=== PATIENT | male | born 1955 | race Two or more races ===

== ENCOUNTER 2017-01-13 17:10 | Inpatient (IN) | payer MEDICARE, OTHER ==
[2017-01-13 17:52] LABS: % BASOPHILS 0.4 % (0.0-2.0); % EOSINOPHILS 3.8 % (0.0-5.0); % LYMPHOCYTES 39.3 % (20.0-50.0); % MONOCYTES 11.9 % (2.0-10.0); % NEUTROPHILS 44.6 % (40.0-80.0); HEMATOCRIT 33.3 % (39.0-49.0); HEMOGLOBIN 11.4 gm/dL (13.2-17.3); MEAN CELL VOLUME 95.6 fl (80-99); MEAN CORPUSCULAR HEMOGLOBIN 32.6 pg (26.0-30.0); MEAN CORPUSCULAR HGB CONC 34.1 pg (28.0-36.0); MEAN PLATELET VOLUME 8.1 fl; NEUTROPHILE ABSOLUTE 2.5 Th/cmm (1.8-8.0); PLATELET COUNT 312 Th/cmm (150-400); RED BLOOD COUNT 3.48 Mil/cmm (4.30-5.70); RED CELL DISTRIBUTION WIDTH 13.2 % (11.5-20.0); WHITE BLOOD COUNT 5.4 Th/cmm (4.8-10.8)
[2017-01-13 18:11] LABS: ALKALINE PHOSPHATASE 50 U/L (34-104); BILIRUBIN,TOTAL 0.2 mg/dL (0.3-1.0); BUN - UREA NITROGEN 31 mg/dL (7-25); BUN/CREATININE RATIO 22.1; CHLORIDE 103 mEq/L (98-107); CREATININE - SERUM 1.4 mg/dL (0.7-1.3); GLUCOSE 104 mg/dL (70-105); SGOT 13 U/L (13-39); SGPT/ALT 11 U/L (7-52); SODIUM SERUM 137 mEq/L (136-145)
[2017-01-13 18:12] LABS: CHOLESTEROL 217 mg/dL (<200); TRIGLYCERIDES 102 mg/dL (<150)
--- NOTE | 2017-01-13 18:34 | ED Physician Chart ---
Chief Complaint/HPI - Patient Information Allergies:: Allergies Allergy/AdvReac Type Severity Reaction Status Date / Time No Known Allergies Allergy Verified 01/13/17 17:25 Vitals:: Vital Signs - 8 hr 01/13/17 17:29 Temp 98.5 F HR 69 RR 16 BP 135/73 O2 Sat % 95 Review of Systems - Review of Systems General/Constitutional: No fever, No chills, No weight loss, No weakness, No diaphoresis, No edema, No loss of appetite Skin: No skin lesions, No rash, No bruising Head: No headache, No light-headedness Eyes: No loss of vision, No pain, No diplopia ENT: No earache, No nasal drainage, No sore throat, No tinnitus Neck: No neck pain, No swelling, No thyromegaly, No stiffness, No mass noted Cardio Vascular: No chest pain, No palpitations, No PND, No orthopnea, No edema Pulmonary: No SOB, No cough, No sputum, No wheezing GI: No nausea, No vomiting, No diarrhea, No pain, No melena, No hematochezia, No constipation, No hematemesis G/U: No dysuria, No frequency, No hematuria Musculoskeletal: No bone or joint pain, No back pain, No muscle pain, Other ( LOWER EXTREMITY EDEMA) Endocrine: No polydipsia Psychiatric: Prior psych history, Depression, No anxiety, No suicidal ideation Hematopoietic: No bruising, No lymphadenopathy Allergic/Immuno: No urticaria, No angioedema Neurological: No syncope, No focal symptoms, No weakness, No paresthesia, No headache, Seizure, No dizziness, Confusion, No vertigo Past Medical History - Past Medical History Obtainable: Yes Past Medical History: HTN, Asthma/COPD, Seizures, Dementia Family History: None Social History: Smoker, Alcohol, No Alcohol, No Drug Use, Care Facility Surgical History: None Psychiatricy History: Schizophrenia, Bipolar Medication: Reviewed Family Medical History - Family Member Mother History Unknown: Yes Physical Exam - Physical Examination General/Constitutional: Awake, Well-developed, well-nourished, Alert, No distress, GCS 15, Non-toxic appearing, Ambulatory Head: Atraumatic Eyes: Lids, conjuctiva normal, PERRL, EOMI Skin: Nl inspection, No rash, No skin lesions, No ecchymosis, Well hydrated, No lymphadenopathy ENMT: External ears, nose nl, Nasal exam nl, Lips, teeth, gums nl Neck: Nontender, Full ROM w/o pain, No JVD, No nuchal rigidity, No bruit, No mass, No stridor Respiratory: Nl effort/Exclusion, Clear to Auscultation, No Wheeze/Rhonchi/Rales Cardio Vascular: RRR, No murmur, gallop, rubs, NL S1 S2 GI: No tenderness/rebounding/guarding, No organomegaly, No hernia, Normal BS's, Nondistended, No mass/bruits, No McBurney tenderness : No CVA tenderness Extremities: No tenderness or effusion, Full ROM, normal strength in all extremities, Normal digits & nails Other Extremities comments:: THIS PATIENT HAS BILATERAL EDEMA OF BOTH LOWER LEGS. Neuro/Psych: Alert/oriented, DTR's symmetric, Normal sensory exam, Normal motor strength, Judgement/insight normal, Normal gait, No focal deficits Other Neuro/Psych comments:: THE IS AGITATE AND LOUD BUT NOW OK AFTER HE WAS GIVEN HALDOL. Misc: normal gait, Normal back, No paraspinal tenderness Labs/Radiology/EKG Results - Lab Results Results: Laboratory Tests 01/13/17 01/13/17 01/13/17 17:33 17:33 17:33 WBC 5.4 RBC 3.48 L Hgb 11.4 L Hct 33.3 L MCV 95.6 MCH 32.6 H MCHC Differential 34.1 RDW 13.2 Plt Count 312 MPV 8.1 Neutrophils % 44.6 Lymphocytes % 39.3 Monocytes % 11.9 H Eosinophils % 3.8 Basophils % 0.4 PTT (Actin FS) 24.9 L Sodium Potassium Chloride Carbon Dioxide Anion Gap BUN Creatinine Est GFR ( Amer) Est GFR (Non-Af Amer) BUN/Creatinine Ratio Glucose Calcium Total Bilirubin AST ALT Alkaline Phosphatase Troponin I Total Protein Albumin Globulin Albumin/Globulin Ratio Triglycerides 102 Cholesterol 217 H LDL Cholesterol Direct 102 HDL Cholesterol 87 01/13/17 01/13/17 17:33 17:33 WBC RBC Hgb Hct MCV MCH MCHC Differential RDW Plt Count MPV Neutrophils % Lymphocytes % Monocytes % Eosinophils % Basophils % PTT (Actin FS) Sodium 137 Potassium 4.0 Chloride 103 Carbon Dioxide 33.0 H Anion Gap 5.0 L BUN 31 H Creatinine 1.4 H Est GFR ( Amer) > 60.0 Est GFR (Non-Af Amer) 54.4 BUN/Creatinine Ratio 22.1 Glucose 104 Calcium 9.0 Total Bilirubin 0.2 L AST 13 ALT 11 Alkaline Phosphatase 50 Troponin I 0.02 Total Protein 4.9 L Albumin 2.5 L Globulin 2.4 Albumin/Globulin Ratio 1.0 Triglycerides Cholesterol LDL Cholesterol Direct HDL Cholesterol - Radiology Results Results: CHEST X-RAY = NAD - EKG Interpretations EKG Time:: 18:25 Rate & Rhythm: RATE=65 SINUS [place]: RIGHT AXIS Assessment - Assessment General Assessment: PSYCHOSIS THE SWOLLEN LEGS ARE CHRONIC EDEMA AND NOT CELLULITIS ED Septic Shock - . Is Septic Shock (SBP<90, OR Lactate>4 mmol\L) present?: No - <6hrs of presentation: Vital Signs: Vital Signs - 8 hr 01/13/ 17:29 Temp 98.5 F HR 69 RR 16 BP 135/73 O2 Sat % 95 Reassessment (Disposition) - Reassessment Reassessment Condition:: Improved - Diagnosis Diagnosis:: PSYCHOSIS - Patient Disposition Discharge/Transfer:: Acute Care w/in this hosp Admitting Medical Physician:: Sanju Saavedra Admitting Psych Physician:: Davin Aguilar Condition at Disposition:: Improved
[2017-01-13 20:24] VITALS: BP 151/82
[2017-01-13] MEDS ORDERED: Maalox 30 mL Cup PO PRN (20:27)
[2017-01-13] MEDS ORDERED: Magnesium Hydroxide (MOM) 30 mL UDC PO PRN (20:27)
[2017-01-13] MEDS: Atorvastatin Calcium 10 MG TAB PO SCH (21:21)
[2017-01-13 21:28] LABS: URINE COLOR PALE YELLOW; URINE GLUCOSE (UA) NEGATIVE (NEGATIVE)
[2017-01-13 21:29] LABS: URINE BILIRUBIN NEGATIVE (NEGATIVE); URINE BLOOD TRACE (NEGATIVE); URINE KETONE NEGATIVE (NEGATIVE); URINE PH 7.5; URINE PROTEIN >300 mg/dL (NEGATIVE); URINE UROBILINOGEN 0.2 E.U./dL (0.2 - 1.0)
[2017-01-13 21:30] LABS: URINE BACTERIA NONE SEEN /hpf (NONE SEEN); URINE EPITHELIAL CELLS NONE SEEN /lpf (FEW); URINE RBC 0-2 /hpf (0-5); URINE WBC NONE SEEN /hpf (0-5)
--- NOTE | 2017-01-14 08:45 | General Progress Note ---
Subjective - Review of Systems Service Date: 01/14/17 Subjective: Confused Objective - Results Result Diagrams: 01/13/17 17:33 01/13/17 17:33 Recent Labs: Laboratory Last Values WBC 5.4 Th/cmm (4.8-10.8) 01/13/17 17: RBC 3.48 Mil/cmm (4.30-5.70) L 01/13/17 17: Hgb 11.4 gm/dL (13.2-17.3) L 01/13/17 17: Hct 33.3 % (39.0-49.0) L 01/13/17 17: MCV 95.6 fl (80-99) 01/13/17 17: MCH 32.6 pg (26.0-30.0) H 01/13/17: MCHC Differential 34.1 pg (28.0-36.0) 01/13/17 17: RDW 13.2 % (11.5-20.0) 01/13/17: Plt Count 312 Th/cmm (150-400) 01/13/17 17: MPV 8.1 fl 01/13/17 17: Neutrophils % 44.6 % (40.0-80.0) 01/13/17 17: Lymphocytes % 39.3 % (20.0-50.0) 01/13/17 17: Monocytes % 11.9 % (2.0-10.0) H 01/13/17 17: Eosinophils % 3.8 % (0.0-5.0) 01/13/17 17: Basophils % 0.4 % (0.0-2.0) 01/13/17 17:33 PTT (Actin FS) 24.9 SECONDS (26.0-38.0) L 01/13/17 17:33 Sodium 137 mEq/L (136-145) 01/13/17 17: Potassium 4.0 mEq/L (3.5-5.1) 01/13/17 17: Chloride 103 mEq/L (98-107) 01/13/17 17: Carbon Dioxide 33.0 mEq/L (21.0-31.0) H 01/13/17 17:33 Anion Gap 5.0 (7.0-16.0) L 01/13/17 17:33 BUN 31 mg/dL (7-25) H 01/13/17 17:33 Creatinine 1.4 mg/dL (0.7-1.3) H 01/13/17 17:33 Est GFR ( Amer) > 60.0 ml/min (>90) 01/13/17 17:33 Est GFR (Non-Af Amer) 54.4 ml/min 01/13/17 17:33 BUN/Creatinine Ratio 22.1 01/13/17 17:33 Glucose 104 mg/dL (70-105) 01/13/17 17:33 Calcium 9.0 mg/dL (8.6-10.3) 01/13/17 17:33 Total Bilirubin 0.2 mg/dL (0.3-1.0) L 01/13/17 17:33 AST 13 U/L (13-39) 01/13/17 17:33 ALT 11 U/L (7-52) 01/13/17 17:33 Alkaline Phosphatase 50 U/L (34-104) 01/13/17 17:33 Troponin I 0.02 ng/mL (0.01-0.05) 01/13/17 17:33 Total Protein 4.9 gm/dL (6.0-8.3) L 01/13/17 17:33 Albumin 2.5 gm/dL (4.2-5.5) L 01/13/17 17:33 Globulin 2.4 gm/dL 01/13/17 17:33 Albumin/Globulin Ratio 1.0 (1.0-1.8) 01/13/17 17:33 Triglycerides 102 mg/dL (<150) 01/13/17 17:33 Cholesterol 217 mg/dL (<200) H 01/13/17 17:33 LDL Cholesterol Direct 102 mg/dL (75-193) 01/13/17 17:33 HDL Cholesterol 87 mg/dL (23-92) 01/13/17 17:33 TSH 3.11 uIU/ml (0.34-5.60) 01/13/17 17:33 Urine Source CLEAN C 01/13/17 19:30 Urine Color PALE YELLOW 01/13/17 19:30 Urine Clarity CLEAR (CLEAR) 01/13/17 19:30 Urine pH 7.5 01/13/17 19:30 Ur Specific [place] 1.020 (1.005-1.030) 01/13/17 19:30 Urine Protein >300 mg/dL (NEGATIVE) H 01/13/17 19:30 Urine Glucose (UA) NEGATIVE mg/dL (NEGATIVE) 01/13/17 19:30 Urine Ketones NEGATIVE mg/dL (NEGATIVE) 01/13/17 19:30 Urine Blood TRACE (NEGATIVE) 01/13/17 19:30 Urine Nitrate NEGATIVE (NEGATIVE) 01/13/17 19:30 Urine Bilirubin NEGATIVE (NEGATIVE) 01/13/17 19:30 Urine Urobilinogen 0.2 E.U./dL (0.2 - 1.0) 01/13/17 19:30 Ur Leukocyte Esterase NEGATIVE (NEGATIVE) 01/13/17 19:30 Urine RBC 0-2 /hpf (0-5) H 01/13/17 19:30 Urine WBC NONE SEEN /hpf (0-5) 01/13/17 19:30 Ur Epithelial Cells NONE SEEN /lpf (FEW) 01/13/17 19:30 Urine Bacteria NONE SEEN /hpf (NONE SEEN) 01/13/17 19:30 Valproic Acid 38.8 ug/mL (50.0-100.0) L 01/13/17 17:52 - Physical Exam Vitals and I&O: Vital Signs Temp 97.5 F 01/14/17 06:59 Pulse 75 01/14/17 06:59 Resp 18 01/14/17 06:59 BP 114/70 01/14/17 06:59 Pulse Ox 97 01/14/17 06:59 Intake & Output 01/13/17 01/14/17 01/14/17 18:59 06:59 18:59 Other: # Voids 1 # Bowel Movements 2 Active Medications: Current Medications Acetaminophen (Tylenol) 650 mg PO Q6H PRN PRN Reason: Mild Pain/Headache/T above 101 Stop: 03/14/17 20:26 Al Hydrox/Mg Hydrox/Simethicone (Maalox) 30 ml PO Q6H PRN PRN Reason: Dyspepsia Stop: 03/14/17 20:26 Aspirin (Ecotrin) 81 mg PO DAILY [facility] Stop: 03/15/17 08:59 Atorvastatin Calcium (Lipitor) 10 mg PO HS [facility] PRN Reason: Protocol Stop: 03/14/17 20:59 Last Admin: 01/13/17 21:21 Dose: 10 mg Divalproex Sodium (Depakote Dr) mg PO BID [facility] PRN Reason: Protocol Stop: 03/15/17 08:59 Docusate Sodium (Colace) 200 mg PO DAILY [facility] Stop: 03/15/17 08:59 Famotidine (Pepcid) 20 mg PO HS [facility] Stop: 03/14/17 20:59 Last Admin: 01/13/17 21:21 Dose: 20 mg Furosemide (Lasix) 20 mg PO DAILY [facility] Stop: 03/15/17 08:59 Lorazepam (Ativan) mg PO Q6H PRN; Protocol PRN Reason: Anxiety Stop: 03/14/17 20:27 Magnesium Hydroxide (Milk Of Magnesia) 30 ml PO HS PRN PRN Reason: Constipation Stop: 03/14/17 20:26 Miscellaneous (Apixaban [Eliquis]) 1 tab PO BID [facility] Stop: 03/15/17 08:59 Miscellaneous (Trazodone Hcl [Trazodone Hcl]) 1 tab PO HS [facility] Stop: 03/14/17 20:59 Potassium Chloride (Potassium Chloride Elixir) 8 meq PO BID [facility] Stop: 03/15/17 08:59 Risperidone (Risperdal) 3 mg PO BID [facility] PRN Reason: Protocol Stop: 03/15/17 08:59 Zolpidem Tartrate (Ambien) 5 mg PO HS PRN PRN Reason: Insomnia Stop: 03/14/17 20:26 General: Alert, Other (Confused) HEENT: Atraumatic Neck: Supple Cardiovascular: Regular rate Lungs: Clear to auscultation Abdomen: Bowel sounds, Soft Extremities: Other Neurological: Other (Unstable gait) Skin: Other (warm and dry) Psych/Mental Status: Other (Confused) Assessment/Plan - Assessment Assessment: Patient is awake, confused, agitated at moments. Today creatinine a little high. Dx: Psychosis, schizophrenia, HTN, Bipolar - Plan Plan: Patient follow by psychiatry. Will continue to monitor
[2017-01-14] MEDS: Potassium Chloride Elixir 20 mEq /15 mL UDC PO SCH ×3 (08:46→16:53)
[2017-01-14] MEDS ORDERED: Non-Formulary Item 1 EA (Apixaban [Eliquis] 1 TAB) PO SCH (09:00)
--- NOTE | 2017-01-14 09:44 | Diagnostic Imaging Report ---
Portable chest x-ray History: Cough Allowing for portable technique the heart size is normal. No focal pulmonary parenchymal processes. No hilar or mediastinal abnormalities. Impression: No acute abnormalities.
--- NOTE | 2017-01-14 09:55 | History & Physical ---
ADMIT DATE: 01/13/2017 CHIEF COMPLAINT: Agitation. HISTORY OF PRESENT ILLNESS: This is the case of a 61-year-old white male who was sent due to increase in agitation. The patient was at another hospital and was transferred to [facility] to be assessed by Psychiatry. PAST MEDICAL HISTORY: COPD, seizure disorder, psychosis, hypertension, bipolar and schizophrenia. SOCIAL HISTORY: The patient is a permanent resident of a intermediate. FAMILY HISTORY: Not available. PAST SURGICAL HISTORY: Not available. MEDICATIONS: Reviewed. REVIEW OF SYSTEMS: Information was not obtained secondary to the patient's mental condition. PHYSICAL EXAMINATION: GENERAL: Does reveal a fairly nourished and developed white male, awake, alert, confused, not oriented and agitated at moments. HEENT: Head is normocephalic and atraumatic. Eyes: Pupils reactive to light. Nose: No evidence of nasal obstruction. Ears: No evidence of any discharge. Mouth: Fairly . LUNGS: Bilateral air entry. No wheezing, no crackles at this moment. HEART: Regular rhythm. ABDOMEN: Soft, nontender. Bowel sounds present. EXTREMITIES: No edema. NEUROLOGICAL: The patient is awake, alert, confused, not oriented. Neurological examination was not completed secondary to the patient's mental condition. IMPRESSION: 1. Psychosis. 2. Hypertension. 3. Chronic obstructive pulmonary disease. 4. Schizophrenia. PLAN: 1. The patient will be admitted in the Geropsych Unit. 2. The patient will be followed by Psychiatry. 3. Continue with intermediate medications. 4. CBC, CMP at a.m. JOB# [id number]
[2017-01-14] MEDS ORDERED: Haloperidol Lactate 5 mg/mL 1mL Vial ONE (13:21)
[2017-01-14] MEDS ORDERED: Haloperidol Lactate 5 mg/mL 1mL Vial IM ONE (13:22)
[2017-01-14] MEDS: Atorvastatin Calcium 10 MG TAB PO SCH (20:03)
--- NOTE | 2017-01-14 21:46 | Psychosocial Evaluation ---
DATE OF SERVICE: 01/14/2017 IDENTIFYING DATA: The patient is a 61-year-old male, resident of [facility]. Information obtained by directly interviewing the patient as well as reviewing patient's papers. JUSTIFICATION OF HOSPITALIZATION: The patient is admitted here on a voluntary basis because of his agitation and aggressive behavior. CHIEF COMPLAINT: "I don't care." HISTORY OF PRESENT ILLNESS: This is the first psychiatric hospitalization to [facility] for this patient who is reported to have been diagnosed to have schizoaffective disorder and has been laughing, giggling and has been verbally abusive towards the staff and during the interview, the patient has been using the curse words and is not able to give much of information. The patient during the evaluation also has been screaming and stating that he missed a smoke break, he does not want to miss another one. Sleep and appetite prior to the hospitalization are reported to be fair. The patient, however, has been having cellulitis of the lower extremities and patient has been having difficult time to cope with the stress at this time. PAST PSYCHIATRIC HISTORY: Details are not known, but the patient is reported to have been hospitalized at [facility] in the past. MEDICAL HISTORY: Physical examination is requested and done by Dr. Saavedra. SUBSTANCE ABUSE HISTORY: The patient denies use of any drugs or alcohol. SOCIAL HISTORY: The patient is a resident at [facility]. The patient is stating that he has a brother. He has no children and he was never able to hold a job. MENTAL STATUS EXAMINATION: The patient is a 61-year-old, looking his stated age, superficially cooperative. Eye contact is poor. Mood is noted to be irritable. Affect is constricted. Insight and judgment are noted to be very much impaired. Impulse control is poor. The patient has pain, also having difficult time to cope with the stress. The patient has been having acute mood swings at this time and is also noted to be grandiose and then paranoid. The patient is verbally abusive towards the others at the facility as well as to the staff members in here. The patient is alert and oriented x 3. Insight and judgment are very much impaired. Impulse control is noted to be poor. The patient's behavior is strictly danger to self and others. The patient is alert and awake. DIAGNOSTIC IMPRESSION: AXIS I: Schizoaffective disorder. AXIS II: None. AXIS III: As per Dr. Saavedra. IMMEDIATE TREATMENT PLAN: The patient is going to be restarted on the Risperdal and Depakote. ESTIMATED LENGTH OF STAY: 3-5 days. DISCHARGE CRITERIA: When he no longer a threat to self or others and be able to cope up with the stress. JOB# [id number]
--- NOTE | 2017-01-14 22:33 | Admit Criteria Form ---
Admit Criteria Forms - Admit Criteria Diagnosis: PSYCHIATRIC DISORDERS (Place 'X' for any and all applicable criteria): Ongoing inpatient care may be needed for 1 or more of the following(1)(2)(3)(4)( 6)(7)(8): [ ]I. Danger to self or others not manageable at lower level of care. [ ]II. Grave disability (eg, inability to perform self care necessary at lower level of care) [x ]III. Agitation or inappropriate behavior interfering with care for primary condition (eg, attempting to discontinue lines or drains prematurely, unable to cooperate with respiratory care) [ ]IV. Severe disability or disorder indicated by ALL of the following: [ ]a) Severe behavioral health disorder-related symptoms or condition indicated by 1 or more of the following: [ ]i) Severe problem with cognition, memory, judgment, or impulse control [ ]ii) Severe clinical manifestations (eg, hallucinations, delusions, other acute psychotic symptoms, barbara, extreme agitation or anxiety) [ ]b) Patient management at lower level of care is not feasible until acute intervention or modification is initiated. Extended stay beyond goal length of stay for the primary condition may be needed until ALLof the following are present(1)(2)(3)(4)(722)(23): [ ]a) Danger to self or others is absent or manageable at lower level of care [ ]b) Behavior crisis management, including physical or chemical restraints, is required and is not available at a lower level of care. [ ]c) Behavioral symptoms (e.g., agitation, somnolence, inappropriate behavior) are present, and are not manageable at a lower level of care. [ ]d) Patient cannot understand follow-up treatment and crisis plan. [ ]e) Provider and supports are sufficiently available at lower level of care. [ ]f) Patient can participate (e.g., verify absence of plan for harm) and is in needed of monitoring. The original [facility] [employer] content created by [facility] has been revised. The portions of the content which have been revised are identified through the use of italic text or in bold, and [email or web address] has neither reviewed nor approved the modified material. All other unmodified content is copyright [facility]. Please see references footnoted in the original [facility] edition 2017 Admit Criteria Met?: Yes
[2017-01-15] MEDS: Potassium Chloride Elixir 20 mEq /15 mL UDC PO SCH ×2 (09:06→17:00)
--- NOTE | 2017-01-15 12:14 | General Progress Note ---
Subjective - Review of Systems Service Date: 01/15/17 Subjective: Confused, and agitated Objective - Results Result Diagrams: 01/13/17 17:33 01/13/17 17:33 Recent Labs: Laboratory Last Values WBC 5.4 Th/cmm (4.8-10.8) 01/13/17 17:33 RBC 3.48 Mil/cmm (4.30-5.70) L 01/13/17 17: Hgb 11.4 gm/dL (13.2-17.3) L 01/13/17 17: Hct 33.3 % (39.0-49.0) L 01/13/17 17: MCV 95.6 fl (80-99) 01/13/17 17: MCH 32.6 pg (26.0-30.0) H 01/13/17 17: MCHC Differential 34.1 pg (28.0-36.0) 01/13/17 17: RDW 13.2 % (11.5-20.0) 01/13/17 17: Plt Count 312 Th/cmm (150-400) 01/13/17 17: MPV 8.1 fl 01/13/17 17:33 Neutrophils % 44.6 % (40.0-80.0) 01/13/17 17: Lymphocytes % 39.3 % (20.0-50.0) 01/13/17 17: Monocytes % 11.9 % (2.0-10.0) H 01/13/17 17: Eosinophils % 3.8 % (0.0-5.0) 01/13/17 17: Basophils % 0.4 % (0.0-2.0) 01/13/17 17:33 PTT (Actin FS) 24.9 SECONDS (26.0-38.0) L 01/13/17 17:33 Sodium 137 mEq/L (136-145) 01/13/17 17:33 Potassium 4.0 mEq/L (3.5-5.1) 01/13/17 17: Chloride 103 mEq/L (98-107) 01/13/17 17: Carbon Dioxide 33.0 mEq/L (21.0-31.0) H 01/13/17 17:33 Anion Gap 5.0 (7.0-16.0) L 01/13/17 17:33 BUN 31 mg/dL (7-25) H 01/13/17 17:33 Creatinine 1.4 mg/dL (0.7-1.3) H 01/13/17 17:33 Est GFR ( Amer) > 60.0 ml/min (>90) 01/13/17 17:33 Est GFR (Non-Af Amer) 54.4 ml/min 01/13/17 17:33 BUN/Creatinine Ratio 22.1 01/13/17 17:33 Glucose 104 mg/dL (70-105) 01/13/17 17: Calcium 9.0 mg/dL (8.6-10.3) 01/13/17 17:33 Total Bilirubin 0.2 mg/dL (0.3-1.0) L 01/13/17 17:33 AST 13 U/L (13-39) 01/13/17: ALT 11 U/L (7-52) 01/13/17 17:33 Alkaline Phosphatase 50 U/L (34-104) 01/13/17 17:33 Troponin I 0.02 ng/mL (0.01-0.05) 01/13/17 17:33 Total Protein 4.9 gm/dL (6.0-8.3) L 01/13/17 17:33 Albumin 2.5 gm/dL (4.2-5.5) L 01/13/17 17:33 Globulin 2.4 gm/dL 01/13/17 17:33 Albumin/Globulin Ratio 1.0 (1.0-1.8) 01/13/17 17:33 Triglycerides 102 mg/dL (<150) 01/13/17 17:33 Cholesterol 217 mg/dL (<200) H 01/13/17 17:33 LDL Cholesterol Direct 102 mg/dL (75-193) 01/13/17 17:33 HDL Cholesterol 87 mg/dL (23-92) 01/13/17 17:33 TSH 3.11 uIU/ml (0.34-5.60) 01/13/17 17:33 Urine Source CLEAN C 01/13/17 19:30 Urine Color PALE YELLOW 01/13/17 19:30 Urine Clarity CLEAR (CLEAR) 01/13/17 19:30 Urine pH 7.5 01/13/17 19:30 Ur Specific [place] 1.020 (1.005-1.030) 01/13/17 19:30 Urine Protein >300 mg/dL (NEGATIVE) H 01/13/17 19:30 Urine Glucose (UA) NEGATIVE mg/dL (NEGATIVE) 01/13/17 19:30 Urine Ketones NEGATIVE mg/dL (NEGATIVE) 01/13/17 19:30 Urine Blood TRACE (NEGATIVE) 01/13/17 19:30 Urine Nitrate NEGATIVE (NEGATIVE) 01/13/17 19:30 Urine Bilirubin NEGATIVE (NEGATIVE) 01/13/17 19:30 Urine Urobilinogen 0.2 E.U./dL (0.2 - 1.0) 01/13/17 19:30 Ur Leukocyte Esterase NEGATIVE (NEGATIVE) 01/13/17 19:30 Urine RBC 0-2 /hpf (0-5) H 01/13/17 19:30 Urine WBC NONE SEEN /hpf (0-5) 01/13/17 19:30 Ur Epithelial Cells NONE SEEN /lpf (FEW) 01/13/17 19:30 Urine Bacteria NONE SEEN /hpf (NONE SEEN) 01/13/17 19:30 Valproic Acid 38.8 ug/mL (50.0-100.0) L 01/13/17 17:52 RPR NONREACTIVE (NONREACTIVE) 01/13/17 17:33 - Physical Exam Vitals and I&O: Vital Signs Temp 97.8 F 01/14/17 15:51 Pulse 79 01/14/17 15:51 Resp 19 01/14/17 15:51 BP 115/69 01/15/17 09:06 Pulse Ox 98 01/14/17 15:51 Intake & Output 01/14/17 01/15/17 01/15/17 18:59 06:59 18:59 Intake Total 800 120 Balance 800 120 Intake: Oral 800 120 Other: # Voids 4 1 # Bowel Movements 0 Active Medications: Current Medications Acetaminophen (Tylenol) 650 mg PO Q6H PRN PRN Reason: Mild Pain/Headache/T above 101 Stop: 03/14/17 20:26 Al Hydrox/Mg Hydrox/Simethicone (Maalox) 30 ml PO Q6H PRN PRN Reason: Dyspepsia Stop: 03/14/17 20:26 Aspirin (Ecotrin) 81 mg PO DAILY [facility] Stop: 03/15/17 08:59 Last Admin: 01/15/17 09:05 Dose: 81 mg Atorvastatin Calcium (Lipitor) 10 mg PO HS [facility] PRN Reason: Protocol Stop: 03/14/17 20:59 Last Admin: 01/14/17 20:03 Dose: 10 mg Diphenhydramine HCl (Benadryl) 50 mg PO QID PRN PRN Reason: Itching Stop: 03/15/17 10:12 Last Admin: 01/15/17 10:30 Dose: 50 mg Divalproex Sodium (Depakote Dr) 500 mg PO BID [facility] PRN Reason: Protocol Stop: 03/15/17 08:59 Last Admin: 01/15/17 09:05 Dose: 500 mg Docusate Sodium (Colace) 200 mg PO DAILY [facility] Stop: 03/15/17 08:59 Last Admin: 01/15/17 09:05 Dose: 200 mg Famotidine (Pepcid) 20 mg PO HS [facility] Stop: 03/14/17 20:59 Last Admin: 01/14/17 20:03 Dose: 20 mg Furosemide (Lasix) 20 mg PO DAILY [facility] Stop: 03/15/17 08:59 Last Admin: 01/15/17 09:06 Dose: Not Given Haloperidol (Haldol) 5 mg PO Q6HR PRN; Protocol PRN Reason: Agitation Stop: 03/15/17 10:09 Last Admin: 01/15/17 10:30 Dose: 5 mg Lorazepam (Ativan) 1 mg PO Q6H PRN; Protocol PRN Reason: Anxiety Stop: 03/14/17 20:27 Last Admin: 01/15/17 10:30 Dose: 1 mg Magnesium Hydroxide (Milk Of Magnesia) 30 ml PO HS PRN PRN Reason: Constipation Stop: 03/14/17 20:26 Miscellaneous (Apixaban [Eliquis]) 1 tab PO BID [facility] Stop: 03/15/17 08:59 Potassium Chloride (Potassium Chloride Elixir) 8 meq PO BID [facility] Stop: 03/15/17 08:59 Last Admin: 01/15/17 09:06 Dose: 8 meq Risperidone (Risperdal) 3 mg PO BID [facility] PRN Reason: Protocol Stop: 03/15/17 08:59 Last Admin: 01/15/17 09:05 Dose: 3 mg Trazodone HCl (Desyrel) 100 mg PO HS [facility] Stop: 03/14/17 20:59 Zolpidem Tartrate (Ambien) 5 mg PO HS PRN PRN Reason: Insomnia Stop: 03/14/17 20:26 General: Alert, Other (Confused) HEENT: Atraumatic Neck: Supple Cardiovascular: Regular rate Lungs: Clear to auscultation Abdomen: Bowel sounds, Soft Extremities: Other (No edema) Neurological: Other (Non ambulatory) Skin: Other (warm and dry) Psych/Mental Status: Other (Confused) Assessment/Plan - Assessment Assessment: Patient is awake, confused, agitated at moments. Today creatinine a little high. Dx: Psychosis, schizophrenia, HTN, Bipolar - Plan Plan: Patient follow by psychiatry. Will continue to monitor
[2017-01-15] MEDS: Atorvastatin Calcium 10 MG TAB PO SCH (21:37)
--- NOTE | 2017-01-16 00:41 | Progress Notes ---
DATE: 01/15/2017 PSYCHIATRIC PROGRESS NOTE TIME PATIENT SEEN: 12 noon. SUBJECTIVE: Staff was spoken to. The patient is interviewed. Mood is noted to be irritable. Affect is constricted. The patient is screaming and yelling and verbally abusive. The patient has no insight into his illness. Coping skills are noted to be very poor. The patient is currently on mood stabilizers as well as antipsychotic medication, has been trying to test the limits and no side effects to the medications are noted at the time. The patient needs to be redirected because of his aggressive and abusive behavior. ASSESSMENT: The patient is still impulsive and having acute mood swings. PLAN: To continue the patient with the supportive therapy and continue the patient with the current medications such as Depakote, which is being given 500 mg twice a day and haloperidol is given on a p.r.n. basis and the patient is also on the Risperdal ____ mg b.i.d. JOB# [id number]
--- NOTE | 2017-01-16 09:22 | General Progress Note ---
Subjective - Review of Systems Service Date: 01/16/17 Subjective: Confused, and agitated Objective - Results Result Diagrams: 01/13/17 17:33 01/13/17 17:33 Recent Labs: Laboratory Last Values WBC 5.4 Th/cmm (4.8-10.8) 01/13/17 17:33 RBC 3.48 Mil/cmm (4.30-5.70) L 01/13/17 17: Hgb 11.4 gm/dL (13.2-17.3) L 01/13/17 17: Hct 33.3 % (39.0-49.0) L 01/13/17 17: MCV 95.6 fl (80-99) 01/13/17 17: MCH 32.6 pg (26.0-30.0) H 01/13/17 17: MCHC Differential 34.1 pg (28.0-36.0) 01/13/17 17: RDW 13.2 % (11.5-20.0) 01/13/17 17: Plt Count 312 Th/cmm (150-400) 01/13/17 17: MPV 8.1 fl 01/13/17 17:33 Neutrophils % 44.6 % (40.0-80.0) 01/13/17 17: Lymphocytes % 39.3 % (20.0-50.0) 01/13/17 17: Monocytes % 11.9 % (2.0-10.0) H 01/13/17 17: Eosinophils % 3.8 % (0.0-5.0) 01/13/17 17: Basophils % 0.4 % (0.0-2.0) 01/13/17 17:33 PTT (Actin FS) 24.9 SECONDS (26.0-38.0) L 01/13/17 17:33 Sodium 137 mEq/L (136-145) 01/13/17 17:33 Potassium 4.0 mEq/L (3.5-5.1) 01/13/17 17: Chloride 103 mEq/L (98-107) 01/13/17 17: Carbon Dioxide 33.0 mEq/L (21.0-31.0) H 01/13/17 17:33 Anion Gap 5.0 (7.0-16.0) L 01/13/17 17:33 BUN 31 mg/dL (7-25) H 01/13/17 17:33 Creatinine 1.4 mg/dL (0.7-1.3) H 01/13/17 17:33 Est GFR ( Amer) > 60.0 ml/min (>90) 01/13/17 17:33 Est GFR (Non-Af Amer) 54.4 ml/min 01/13/17 17:33 BUN/Creatinine Ratio 22.1 01/13/17 17:33 Glucose 104 mg/dL (70-105) 01/13/17 17: Calcium 9.0 mg/dL (8.6-10.3) 01/13/17 17:33 Total Bilirubin 0.2 mg/dL (0.3-1.0) L 01/13/17 17:33 AST 13 U/L (13-39) 01/13/17: ALT 11 U/L (7-52) 01/13/17 17:33 Alkaline Phosphatase 50 U/L (34-104) 01/13/17 17:33 Troponin I 0.02 ng/mL (0.01-0.05) 01/13/17 17:33 Total Protein 4.9 gm/dL (6.0-8.3) L 01/13/17 17:33 Albumin 2.5 gm/dL (4.2-5.5) L 01/13/17 17:33 Globulin 2.4 gm/dL 01/13/17 17:33 Albumin/Globulin Ratio 1.0 (1.0-1.8) 01/13/17 17:33 Triglycerides 102 mg/dL (<150) 01/13/17 17:33 Cholesterol 217 mg/dL (<200) H 01/13/17 17:33 LDL Cholesterol Direct 102 mg/dL (75-193) 01/13/17 17:33 HDL Cholesterol 87 mg/dL (23-92) 01/13/17 17:33 TSH 3.11 uIU/ml (0.34-5.60) 01/13/17 17:33 Urine Source CLEAN C 01/13/17 19:30 Urine Color PALE YELLOW 01/13/17 19:30 Urine Clarity CLEAR (CLEAR) 01/13/17 19:30 Urine pH 7.5 01/13/17 19:30 Ur Specific [place] 1.020 (1.005-1.030) 01/13/17 19:30 Urine Protein >300 mg/dL (NEGATIVE) H 01/13/17 19:30 Urine Glucose (UA) NEGATIVE mg/dL (NEGATIVE) 01/13/17 19:30 Urine Ketones NEGATIVE mg/dL (NEGATIVE) 01/13/17 19:30 Urine Blood TRACE (NEGATIVE) 01/13/17 19:30 Urine Nitrate NEGATIVE (NEGATIVE) 01/13/17 19:30 Urine Bilirubin NEGATIVE (NEGATIVE) 01/13/17 19:30 Urine Urobilinogen 0.2 E.U./dL (0.2 - 1.0) 01/13/17 19:30 Ur Leukocyte Esterase NEGATIVE (NEGATIVE) 01/13/17 19:30 Urine RBC 0-2 /hpf (0-5) H 01/13/17 19:30 Urine WBC NONE SEEN /hpf (0-5) 01/13/17 19:30 Ur Epithelial Cells NONE SEEN /lpf (FEW) 01/13/17 19:30 Urine Bacteria NONE SEEN /hpf (NONE SEEN) 01/13/17 19:30 Valproic Acid 38.8 ug/mL (50.0-100.0) L 01/13/17 17:52 RPR NONREACTIVE (NONREACTIVE) 01/13/17 17:33 - Physical Exam Vitals and I&O: Vital Signs Temp 98 F 01/15/17 19:48 Pulse 83 01/15/17 19:48 Resp 18 01/15/17 20:00 BP 100/62 01/15/17 19:48 Pulse Ox 97 01/15/17 19:48 Intake & Output 01/15/17 01/16/17 01/16/17 18:59 06:59 18:59 Intake Total 1000 240 Balance 1000 240 Intake: Oral 1000 240 Other: # Voids 4 1 # Bowel Movements 0 0 Active Medications: Current Medications Acetaminophen (Tylenol) 650 mg PO Q6H PRN PRN Reason: Mild Pain/Headache/T above 101 Stop: 03/14/17 20:26 Al Hydrox/Mg Hydrox/Simethicone (Maalox) 30 ml PO Q6H PRN PRN Reason: Dyspepsia Stop: 03/14/17 20:26 Aspirin (Ecotrin) 81 mg PO DAILY [facility] Stop: 03/15/17 08:59 Last Admin: 01/15/17 09:05 Dose: 81 mg Atorvastatin Calcium (Lipitor) 10 mg PO HS SERA PRN Reason: Protocol Stop: 03/14/17 20:59 Last Admin: 01/15/17 21:37 Dose: 10 mg Diphenhydramine HCl (Benadryl) 50 mg PO QID PRN PRN Reason: Itching Stop: 03/15/17 10:12 Last Admin: 01/16/17 04:11 Dose: 50 mg Divalproex Sodium (Depakote Dr) 500 mg PO BID SERA PRN Reason: Protocol Stop: 03/15/17 08:59 Last Admin: 01/15/17 17:01 Dose: 500 mg Docusate Sodium (Colace) 200 mg PO DAILY [facility] Stop: 03/15/17 08:59 Last Admin: 01/15/17 09:05 Dose: 200 mg Famotidine (Pepcid) 20 mg PO HS SERA Stop: 03/14/17 20:59 Last Admin: 01/15/17 21:37 Dose: 20 mg Furosemide (Lasix) 20 mg PO DAILY [facility] Stop: 03/15/17 08:59 Last Admin: 01/15/17 09:06 Dose: Not Given Haloperidol (Haldol) 5 mg PO Q6HR PRN; Protocol PRN Reason: Agitation Stop: 03/15/17 10:09 Last Admin: 01/16/17 04:11 Dose: 5 mg Lorazepam (Ativan) 1 mg PO Q6H PRN; Protocol PRN Reason: Anxiety Stop: 03/14/17 20:27 Last Admin: 01/16/17 04:11 Dose: 1 mg Magnesium Hydroxide (Milk Of Magnesia) 30 ml PO HS PRN PRN Reason: Constipation Stop: 03/14/17 20:26 Miscellaneous (Apixaban [Eliquis]) 1 tab PO BID [facility] Stop: 03/15/17 08:59 Potassium Chloride (Potassium Chloride Elixir) 8 meq PO BID [facility] Stop: 03/15/17 08:59 Last Admin: 01/15/17 17:00 Dose: 8 meq Risperidone (Risperdal) 3 mg PO BID SERA PRN Reason: Protocol Stop: 03/15/17 08:59 Last Admin: 01/15/17 17:01 Dose: 3 mg Trazodone HCl (Desyrel) 100 mg PO HS SERA Stop: 03/14/17 20:59 Last Admin: 01/15/17 21:38 Dose: 100 mg Zolpidem Tartrate (Ambien) 5 mg PO HS PRN PRN Reason: Insomnia Stop: 03/14/17 20:26 General: Alert, Other HEENT: Atraumatic Neck: Supple Cardiovascular: Regular rate Lungs: Clear to auscultation Abdomen: Bowel sounds Extremities: Other Neurological: Other (Unstable gait) Skin: Other (Warm ) Psych/Mental Status: Other (Confused) Assessment/Plan - Assessment Assessment: Patient is awake, confused, agitated at moments. Today creatinine a little high. Dx: Psychosis, schizophrenia, HTN, Bipolar - Plan Plan: Patient follow by psychiatry. Will continue to monitor
[2017-01-16] MEDS: Potassium Chloride Elixir 20 mEq /15 mL UDC PO SCH ×2 (09:29→17:04)
[2017-01-16] MEDS ORDERED: Haloperidol Lactate 5 mg/mL 1mL Vial ONE (10:29)
[2017-01-16] MEDS ORDERED: Haloperidol Lactate 5 mg/mL 1mL Vial IM ONE (10:30)
[2017-01-16] MEDS: Atorvastatin Calcium 10 MG TAB PO SCH (20:09)
[2017-01-17] MEDS: Potassium Chloride Elixir 20 mEq /15 mL UDC PO SCH ×2 (08:13→17:49)
--- NOTE | 2017-01-17 09:22 | General Progress Note ---
Subjective - Review of Systems Service Date: 01/17/17 Subjective: Confused, and agitated Objective - Results Result Diagrams: 01/13/17 17:33 01/13/17 17:33 Recent Labs: Laboratory Last Values WBC 5.4 Th/cmm (4.8-10.8) 01/13/17 17:33 RBC 3.48 Mil/cmm (4.30-5.70) L 01/13/17 17: Hgb 11.4 gm/dL (13.2-17.3) L 01/13/17 17: Hct 33.3 % (39.0-49.0) L 01/13/17 17: MCV 95.6 fl (80-99) 01/13/17 17: MCH 32.6 pg (26.0-30.0) H 01/13/17 17: MCHC Differential 34.1 pg (28.0-36.0) 01/13/17 17: RDW 13.2 % (11.5-20.0) 01/13/17 17: Plt Count 312 Th/cmm (150-400) 01/13/17 17: MPV 8.1 fl 01/13/17 17:33 Neutrophils % 44.6 % (40.0-80.0) 01/13/17 17: Lymphocytes % 39.3 % (20.0-50.0) 01/13/17 17: Monocytes % 11.9 % (2.0-10.0) H 01/13/17 17: Eosinophils % 3.8 % (0.0-5.0) 01/13/17 17: Basophils % 0.4 % (0.0-2.0) 01/13/17 17:33 PTT (Actin FS) 24.9 SECONDS (26.0-38.0) L 01/13/17 17:33 Sodium 137 mEq/L (136-145) 01/13/17 17:33 Potassium 4.0 mEq/L (3.5-5.1) 01/13/17 17: Chloride 103 mEq/L (98-107) 01/13/17 17: Carbon Dioxide 33.0 mEq/L (21.0-31.0) H 01/13/17 17:33 Anion Gap 5.0 (7.0-16.0) L 01/13/17 17:33 BUN 31 mg/dL (7-25) H 01/13/17 17:33 Creatinine 1.4 mg/dL (0.7-1.3) H 01/13/17 17:33 Est GFR ( Amer) > 60.0 ml/min (>90) 01/13/17 17:33 Est GFR (Non-Af Amer) 54.4 ml/min 01/13/17 17:33 BUN/Creatinine Ratio 22.1 01/13/17 17:33 Glucose 104 mg/dL (70-105) 01/13/17 17: Calcium 9.0 mg/dL (8.6-10.3) 01/13/17 17:33 Total Bilirubin 0.2 mg/dL (0.3-1.0) L 01/13/17 17:33 AST 13 U/L (13-39) 01/13/17: ALT 11 U/L (7-52) 01/13/17 17:33 Alkaline Phosphatase 50 U/L (34-104) 01/13/17 17:33 Troponin I 0.02 ng/mL (0.01-0.05) 01/13/17 17:33 Total Protein 4.9 gm/dL (6.0-8.3) L 01/13/17 17:33 Albumin 2.5 gm/dL (4.2-5.5) L 01/13/17 17:33 Globulin 2.4 gm/dL 01/13/17 17:33 Albumin/Globulin Ratio 1.0 (1.0-1.8) 01/13/17 17:33 Triglycerides 102 mg/dL (<150) 01/13/17 17:33 Cholesterol 217 mg/dL (<200) H 01/13/17 17:33 LDL Cholesterol Direct 102 mg/dL (75-193) 01/13/17 17:33 HDL Cholesterol 87 mg/dL (23-92) 01/13/17 17:33 TSH 3.11 uIU/ml (0.34-5.60) 01/13/17 17:33 Urine Source CLEAN C 01/13/17 19:30 Urine Color PALE YELLOW 01/13/17 19:30 Urine Clarity CLEAR (CLEAR) 01/13/17 19:30 Urine pH 7.5 01/13/17 19:30 Ur Specific [place] 1.020 (1.005-1.030) 01/13/17 19:30 Urine Protein >300 mg/dL (NEGATIVE) H 01/13/17 19:30 Urine Glucose (UA) NEGATIVE mg/dL (NEGATIVE) 01/13/17 19:30 Urine Ketones NEGATIVE mg/dL (NEGATIVE) 01/13/17 19:30 Urine Blood TRACE (NEGATIVE) 01/13/17 19:30 Urine Nitrate NEGATIVE (NEGATIVE) 01/13/17 19:30 Urine Bilirubin NEGATIVE (NEGATIVE) 01/13/17 19:30 Urine Urobilinogen 0.2 E.U./dL (0.2 - 1.0) 01/13/17 19:30 Ur Leukocyte Esterase NEGATIVE (NEGATIVE) 01/13/17 19:30 Urine RBC 0-2 /hpf (0-5) H 01/13/17 19:30 Urine WBC NONE SEEN /hpf (0-5) 01/13/17 19:30 Ur Epithelial Cells NONE SEEN /lpf (FEW) 01/13/17 19:30 Urine Bacteria NONE SEEN /hpf (NONE SEEN) 01/13/17 19:30 Valproic Acid 38.8 ug/mL (50.0-100.0) L 01/13/17 17:52 RPR NONREACTIVE (NONREACTIVE) 01/13/17 17:33 - Physical Exam Vitals and I&O: Vital Signs Temp 98 F 01/17/17 06:46 Pulse 82 01/17/17 06:46 Resp 19 01/17/17 06:46 BP 128/76 01/17/17 08:12 Pulse Ox 98 01/17/17 06:46 Intake & Output 01/16/17 01/17/17 01/17/17 18:59 06:59 18:59 Intake Total 1800 480 Balance 1800 480 Intake: Oral 1800 480 Other: # Voids 4 3 # Bowel Movements 0 0 Active Medications: Current Medications Acetaminophen (Tylenol) 650 mg PO Q6H PRN PRN Reason: Mild Pain/Headache/T above 101 Stop: 03/14/17 20:26 Last Admin: 01/16/17 20:09 Dose: 650 mg Al Hydrox/Mg Hydrox/Simethicone (Maalox) 30 ml PO Q6H PRN PRN Reason: Dyspepsia Stop: 03/14/17 20:26 Aspirin (Ecotrin) 81 mg PO DAILY [facility] Stop: 03/15/17 08:59 Last Admin: 01/17/17 08:12 Dose: 81 mg Atorvastatin Calcium (Lipitor) 10 mg PO HS SERA PRN Reason: Protocol Stop: 03/14/17 20:59 Last Admin: 01/16/17 20:09 Dose: 10 mg Diphenhydramine HCl (Benadryl) 50 mg PO QID PRN PRN Reason: Itching Stop: 03/15/17 10:12 Last Admin: 01/16/17 04:11 Dose: 50 mg Divalproex Sodium (Depakote Dr) 500 mg PO BID [facility] PRN Reason: Protocol Stop: 03/15/17 08:59 Last Admin: 01/17/17 08:12 Dose: 500 mg Docusate Sodium (Colace) 200 mg PO DAILY [facility] Stop: 03/15/17 08:59 Last Admin: 01/16/17 09:29 Dose: Not Given Famotidine (Pepcid) 20 mg PO HS [facility] Stop: 03/14/17 20:59 Last Admin: 01/16/17 20:08 Dose: 20 mg Furosemide (Lasix) 20 mg PO DAILY [facility] Stop: 03/15/17 08:59 Last Admin: 01/17/17 08:12 Dose: 20 mg Haloperidol (Haldol) 5 mg PO Q6HR PRN; Protocol PRN Reason: Agitation Stop: 03/15/17 10:09 Last Admin: 01/16/17 04:11 Dose: 5 mg Lorazepam (Ativan) 1 mg PO Q6H PRN; Protocol PRN Reason: Anxiety Stop: 03/14/17 20:27 Last Admin: 01/17/17 03:52 Dose: 1 mg Magnesium Hydroxide (Milk Of Magnesia) 30 ml PO HS PRN PRN Reason: Constipation Stop: 03/14/17 20:26 Potassium Chloride (Potassium Chloride Elixir) 8 meq PO BID [facility] Stop: 03/15/17 08:59 Last Admin: 01/17/17 08:13 Dose: 8 meq Risperidone (Risperdal) 3 mg PO BID [facility] PRN Reason: Protocol Stop: 03/15/17 08:59 Last Admin: 01/17/17 08:12 Dose: 3 mg Rivaroxaban (Xarelto) 20 mg PO DAILY [facility] Stop: 03/18/17 08:59 Last Admin: 01/17/17 08:12 Dose: 20 mg Trazodone HCl (Desyrel) 100 mg PO HS [facility] Stop: 03/14/17 20:59 Last Admin: 01/16/17 20:08 Dose: 100 mg Zolpidem Tartrate (Ambien) 5 mg PO HS PRN PRN Reason: Insomnia Stop: 03/14/17 20:26 Last Admin: 01/16/17 21:11 Dose: 5 mg General: Alert, Other (Confused) HEENT: Atraumatic Neck: Supple Cardiovascular: Regular rate Lungs: Clear to auscultation Abdomen: Bowel sounds, Soft Extremities: Other (No edema) Neurological: Other (Unstable gait) Skin: Other (Warm and dry) Psych/Mental Status: Other (Confused) Assessment/Plan - Assessment Assessment: Patient is awake, confused, agitated at moments. Today creatinine a little high. Dx: Psychosis, schizophrenia, HTN, Bipolar - Plan Plan: Patient follow by psychiatry. he is taking his meds. Will continue to monitor
[2017-01-17] MEDS: Atorvastatin Calcium 10 MG TAB PO SCH (20:39)
[2017-01-18] MEDS: Potassium Chloride Elixir 20 mEq /15 mL UDC PO SCH ×2 (08:08→17:03)
--- NOTE | 2017-01-18 09:10 | General Progress Note ---
Subjective - Review of Systems Service Date: 01/18/17 Subjective: Confused, and agitated Objective - Results Result Diagrams: 01/13/17 17:33 01/13/17 17:33 Recent Labs: Laboratory Last Values WBC 5.4 Th/cmm (4.8-10.8) 01/13/17 17:33 RBC 3.48 Mil/cmm (4.30-5.70) L 01/13/17 17: Hgb 11.4 gm/dL (13.2-17.3) L 01/13/17 17: Hct 33.3 % (39.0-49.0) L 01/13/17 17: MCV 95.6 fl (80-99) 01/13/17 17: MCH 32.6 pg (26.0-30.0) H 01/13/17 17: MCHC Differential 34.1 pg (28.0-36.0) 01/13/17 17: RDW 13.2 % (11.5-20.0) 01/13/17 17: Plt Count 312 Th/cmm (150-400) 01/13/17 17: MPV 8.1 fl 01/13/17 17:33 Neutrophils % 44.6 % (40.0-80.0) 01/13/17 17: Lymphocytes % 39.3 % (20.0-50.0) 01/13/17 17: Monocytes % 11.9 % (2.0-10.0) H 01/13/17 17: Eosinophils % 3.8 % (0.0-5.0) 01/13/17 17: Basophils % 0.4 % (0.0-2.0) 01/13/17 17:33 PTT (Actin FS) 24.9 SECONDS (26.0-38.0) L 01/13/17 17:33 Sodium 137 mEq/L (136-145) 01/13/17 17:33 Potassium 4.0 mEq/L (3.5-5.1) 01/13/17 17: Chloride 103 mEq/L (98-107) 01/13/17 17: Carbon Dioxide 33.0 mEq/L (21.0-31.0) H 01/13/17 17:33 Anion Gap 5.0 (7.0-16.0) L 01/13/17 17:33 BUN 31 mg/dL (7-25) H 01/13/17 17:33 Creatinine 1.4 mg/dL (0.7-1.3) H 01/13/17 17:33 Est GFR ( Amer) > 60.0 ml/min (>90) 01/13/17 17:33 Est GFR (Non-Af Amer) 54.4 ml/min 01/13/17 17:33 BUN/Creatinine Ratio 22.1 01/13/17 17:33 Glucose 104 mg/dL (70-105) 01/13/17 17: Calcium 9.0 mg/dL (8.6-10.3) 01/13/17 17:33 Total Bilirubin 0.2 mg/dL (0.3-1.0) L 01/13/17 17:33 AST 13 U/L (13-39) 01/13/17: ALT 11 U/L (7-52) 01/13/17 17:33 Alkaline Phosphatase 50 U/L (34-104) 01/13/17 17:33 Troponin I 0.02 ng/mL (0.01-0.05) 01/13/17 17:33 Total Protein 4.9 gm/dL (6.0-8.3) L 01/13/17 17:33 Albumin 2.5 gm/dL (4.2-5.5) L 01/13/17 17:33 Globulin 2.4 gm/dL 01/13/17 17:33 Albumin/Globulin Ratio 1.0 (1.0-1.8) 01/13/17 17:33 Triglycerides 102 mg/dL (<150) 01/13/17 17:33 Cholesterol 217 mg/dL (<200) H 01/13/17 17:33 LDL Cholesterol Direct 102 mg/dL (75-193) 01/13/17 17:33 HDL Cholesterol 87 mg/dL (23-92) 01/13/17 17:33 TSH 3.11 uIU/ml (0.34-5.60) 01/13/17 17:33 Urine Source CLEAN C 01/13/17 19:30 Urine Color PALE YELLOW 01/13/17 19:30 Urine Clarity CLEAR (CLEAR) 01/13/17 19:30 Urine pH 7.5 01/13/17 19:30 Ur Specific [place] 1.020 (1.005-1.030) 01/13/17 19:30 Urine Protein >300 mg/dL (NEGATIVE) H 01/13/17 19:30 Urine Glucose (UA) NEGATIVE mg/dL (NEGATIVE) 01/13/17 19:30 Urine Ketones NEGATIVE mg/dL (NEGATIVE) 01/13/17 19:30 Urine Blood TRACE (NEGATIVE) 01/13/17 19:30 Urine Nitrate NEGATIVE (NEGATIVE) 01/13/17 19:30 Urine Bilirubin NEGATIVE (NEGATIVE) 01/13/17 19:30 Urine Urobilinogen 0.2 E.U./dL (0.2 - 1.0) 01/13/17 19:30 Ur Leukocyte Esterase NEGATIVE (NEGATIVE) 01/13/17 19:30 Urine RBC 0-2 /hpf (0-5) H 01/13/17 19:30 Urine WBC NONE SEEN /hpf (0-5) 01/13/17 19:30 Ur Epithelial Cells NONE SEEN /lpf (FEW) 01/13/17 19:30 Urine Bacteria NONE SEEN /hpf (NONE SEEN) 01/13/17 19:30 Valproic Acid 38.8 ug/mL (50.0-100.0) L 01/13/17 17:52 RPR NONREACTIVE (NONREACTIVE) 01/13/17 17:33 - Physical Exam Vitals and I&O: Vital Signs Temp 98.4 F 01/18/17 06:00 Pulse 74 01/18/17 06:00 Resp 19 01/18/17 06:00 BP 123/86 01/18/17 08:10 Pulse Ox 98 01/18/17 06:00 Intake & Output 01/17/17 01/18/17 01/18/17 18:59 06:59 18:59 Intake Total 2400 480 Balance 2400 480 Intake: Oral 2400 480 Other: # Voids 4 1 # Bowel Movements 0 Active Medications: Current Medications Acetaminophen (Tylenol) 650 mg PO Q6H PRN PRN Reason: Mild Pain/Headache/T above 101 Stop: 03/14/17 20:26 Last Admin: 01/17/17 20:40 Dose: 650 mg Al Hydrox/Mg Hydrox/Simethicone (Maalox) 30 ml PO Q6H PRN PRN Reason: Dyspepsia Stop: 03/14/17 20:26 Aspirin (Ecotrin) 81 mg PO DAILY [facility] Stop: 03/15/17 08:59 Last Admin: 01/18/17 08:10 Dose: 81 mg Atorvastatin Calcium (Lipitor) 10 mg PO HS [facility] PRN Reason: Protocol Stop: 03/14/17 20:59 Last Admin: 01/17/17 20:39 Dose: 10 mg Diphenhydramine HCl (Benadryl) 50 mg PO QID PRN PRN Reason: Itching Stop: 03/15/17 10:12 Last Admin: 01/16/17 04:11 Dose: 50 mg Divalproex Sodium (Depakote Dr) 500 mg PO BID [facility] PRN Reason: Protocol Stop: 03/15/17 08:59 Last Admin: 01/18/17 08:10 Dose: 500 mg Docusate Sodium (Colace) 200 mg PO DAILY [facility] Stop: 03/15/17 08:59 Last Admin: 01/18/17 08:08 Dose: 200 mg Famotidine (Pepcid) 20 mg PO HS [facility] Stop: 03/14/17 20:59 Last Admin: 01/17/17 20:39 Dose: 20 mg Furosemide (Lasix) 20 mg PO DAILY [facility] Stop: 03/15/17 08:59 Last Admin: 01/18/17 08:10 Dose: 20 mg Haloperidol (Haldol) 5 mg PO Q6HR PRN; Protocol PRN Reason: Agitation Stop: 03/15/17 10:09 Last Admin: 01/16/17 04:11 Dose: 5 mg [place] Carbonate (Eskalith) 300 mg PO BID [facility] PRN Reason: Protocol Stop: 03/19/17 08:59 Last Admin: 01/18/17 08:10 Dose: 300 mg Lorazepam (Ativan) 1 mg PO Q6H PRN; Protocol PRN Reason: Anxiety Stop: 03/14/17 20:27 Last Admin: 01/18/17 08:10 Dose: 1 mg Magnesium Hydroxide (Milk Of Magnesia) 30 ml PO HS PRN PRN Reason: Constipation Stop: 03/14/17 20:26 Potassium Chloride (Potassium Chloride Elixir) 8 meq PO BID [facility] Stop: 03/15/17 08:59 Last Admin: 01/18/17 08:08 Dose: 8 meq Quetiapine Fumarate (Seroquel) 50 mg PO BID [facility] PRN Reason: Protocol Stop: 03/19/17 08:59 Last Admin: 01/18/17 08:10 Dose: 50 mg Rivaroxaban (Xarelto) 20 mg PO DAILY [facility] Stop: 03/18/17 08:59 Last Admin: 01/18/17 08:08 Dose: 20 mg Trazodone HCl (Desyrel) 100 mg PO HS [facility] Stop: 03/14/17 20:59 Last Admin: 01/17/17 20:42 Dose: 100 mg Zolpidem Tartrate (Ambien) 5 mg PO HS PRN PRN Reason: Insomnia Stop: 03/14/17 20:26 Last Admin: 01/16/17 21:11 Dose: 5 mg General: Alert, Other (Confused) HEENT: Atraumatic Neck: Supple Cardiovascular: Regular rate Lungs: Clear to auscultation Abdomen: Bowel sounds, Soft Extremities: Other (No edema) Neurological: Other (Non ambulatory) Skin: Other (Warm and dry) Psych/Mental Status: Other (Confused) Assessment/Plan - Assessment Assessment: Patient is awake, confused, agitated at moments. Today creatinine a little high. Dx: Psychosis, schizophrenia, HTN, Bipolar - Plan Plan: Patient follow by psychiatry. he is taking his meds. Will continue to monitor
[2017-01-18] MEDS ORDERED: chlorproMAZINE 25 mg/mL 2mL Amp ONE (14:40)
[2017-01-18] MEDS ORDERED: chlorproMAZINE 25 mg/mL 2mL Amp IM STA (14:42)
[2017-01-18] MEDS: Atorvastatin Calcium 10 MG TAB PO SCH (23:08)
--- NOTE | 2017-01-19 08:57 | General Progress Note ---
Subjective - Review of Systems Service Date: 01/19/17 Subjective: Patient is Confused. Objective - Results Result Diagrams: 01/13/17 17:33 01/13/17 17:33 Recent Labs: Laboratory Last Values WBC 5.4 Th/cmm (4.8-10.8) 01/13/17 17:33 RBC 3.48 Mil/cmm (4.30-5.70) L 01/13/17 17: Hgb 11.4 gm/dL (13.2-17.3) L 01/13/17 17: Hct 33.3 % (39.0-49.0) L 01/13/17 17: MCV 95.6 fl (80-99) 01/13/17 17: MCH 32.6 pg (26.0-30.0) H 01/13/17 17: MCHC Differential 34.1 pg (28.0-36.0) 01/13/17 17: RDW 13.2 % (11.5-20.0) 01/13/17: Plt Count 312 Th/cmm (150-400) 01/13/17 17: MPV 8.1 fl 01/13/17 17: Neutrophils % 44.6 % (40.0-80.0) 01/13/17 17: Lymphocytes % 39.3 % (20.0-50.0) 01/13/17 17: Monocytes % 11.9 % (2.0-10.0) H 01/13/17 17: Eosinophils % 3.8 % (0.0-5.0) 01/13/17 17: Basophils % 0.4 % (0.0-2.0) 01/13/17 17:33 PTT (Actin FS) 24.9 SECONDS (26.0-38.0) L 01/13/17 17:33 Sodium 137 mEq/L (136-145) 01/13/17 17:33 Potassium 4.0 mEq/L (3.5-5.1) 01/13/17 17:33 Chloride 103 mEq/L (98-107) 01/13/17 17: Carbon Dioxide 33.0 mEq/L (21.0-31.0) H 01/13/17 17:33 Anion Gap 5.0 (7.0-16.0) L 01/13/17 17:33 BUN 31 mg/dL (7-25) H 01/13/17 17:33 Creatinine 1.4 mg/dL (0.7-1.3) H 01/13/17 17:33 Est GFR ( Amer) > 60.0 ml/min (>90) 01/13/17 17:33 Est GFR (Non-Af Amer) 54.4 ml/min 01/13/17 17:33 BUN/Creatinine Ratio 22.1 01/13/17 17:33 Glucose 104 mg/dL (70-105) 01/13/17 17: Calcium 9.0 mg/dL (8.6-10.3) 01/13/17 17:33 Total Bilirubin 0.2 mg/dL (0.3-1.0) L 01/13/17 17:33 AST 13 U/L (13-39) 01/13/17 17:33 ALT 11 U/L (7-52) 01/13/17 17:33 Alkaline Phosphatase 50 U/L (34-104) 01/13/17 17:33 Troponin I 0.02 ng/mL (0.01-0.05) 01/13/17 17:33 Total Protein 4.9 gm/dL (6.0-8.3) L 01/13/17 17:33 Albumin 2.5 gm/dL (4.2-5.5) L 01/13/17 17:33 Globulin 2.4 gm/dL 01/13/17 17:33 Albumin/Globulin Ratio 1.0 (1.0-1.8) 01/13/17 17:33 Triglycerides 102 mg/dL (<150) 01/13/17 17:33 Cholesterol 217 mg/dL (<200) H 01/13/17 17:33 LDL Cholesterol Direct 102 mg/dL (75-193) 01/13/17 17:33 HDL Cholesterol 87 mg/dL (23-92) 01/13/17 17:33 TSH 3.11 uIU/ml (0.34-5.60) 01/13/17 17:33 Urine Source CLEAN C 01/13/17 19:30 Urine Color PALE YELLOW 01/13/17 19:30 Urine Clarity CLEAR (CLEAR) 01/13/17 19:30 Urine pH 7.5 01/13/17 19:30 Ur Specific [place] 1.020 (1.005-1.030) 01/13/17 19:30 Urine Protein >300 mg/dL (NEGATIVE) H 01/13/17 19:30 Urine Glucose (UA) NEGATIVE mg/dL (NEGATIVE) 01/13/17 19:30 Urine Ketones NEGATIVE mg/dL (NEGATIVE) 01/13/17 19:30 Urine Blood TRACE (NEGATIVE) 01/13/17 19:30 Urine Nitrate NEGATIVE (NEGATIVE) 01/13/17 19:30 Urine Bilirubin NEGATIVE (NEGATIVE) 01/13/17 19:30 Urine Urobilinogen 0.2 E.U./dL (0.2 - 1.0) 01/13/17 19:30 Ur Leukocyte Esterase NEGATIVE (NEGATIVE) 01/13/17 19:30 Urine RBC 0-2 /hpf (0-5) H 01/13/17 19:30 Urine WBC NONE SEEN /hpf (0-5) 01/13/17 19:30 Ur Epithelial Cells NONE SEEN /lpf (FEW) 01/13/17 19:30 Urine Bacteria NONE SEEN /hpf (NONE SEEN) 01/13/17 19:30 Valproic Acid 38.8 ug/mL (50.0-100.0) L 01/13/17 17:52 RPR NONREACTIVE (NONREACTIVE) 01/13/17 17:33 - Physical Exam Vitals and I&O: Vital Signs Temp 97.8 F 01/18/17 14:00 Pulse 88 01/18/17 14:00 Resp 20 01/18/17 14:00 BP 121/78 01/18/17 14:00 Pulse Ox 97 01/18/17 14:00 Intake & Output 01/18/17 01/19/17 01/19/17 18:59 06:59 18:59 Intake Total 1200 Balance 1200 Intake: Oral 1200 Other: # Voids 5 # Bowel Movements 1 Active Medications: Current Medications Acetaminophen (Tylenol) 650 mg PO Q6H PRN PRN Reason: Mild Pain/Headache/T above 101 Stop: 03/14/17 20:26 Last Admin: 01/17/17 20:40 Dose: 650 mg Al Hydrox/Mg Hydrox/Simethicone (Maalox) 30 ml PO Q6H PRN PRN Reason: Dyspepsia Stop: 03/14/17 20:26 Aspirin (Ecotrin) 81 mg PO DAILY [facility] Stop: 03/15/17 08:59 Last Admin: 01/18/17 08:10 Dose: 81 mg Atorvastatin Calcium (Lipitor) 10 mg PO HS SERA PRN Reason: Protocol Stop: 03/14/17 20:59 Last Admin: 01/18/17 23:08 Dose: Not Given Diphenhydramine HCl (Benadryl) 50 mg PO QID PRN PRN Reason: Itching Stop: 03/15/17 10:12 Last Admin: 01/19/17 06:30 Dose: 50 mg Divalproex Sodium (Depakote Dr) 500 mg PO BID SERA PRN Reason: Protocol Stop: 03/15/17 08:59 Last Admin: 01/18/17 17:05 Dose: Not Given Docusate Sodium (Colace) 200 mg PO DAILY [facility] Stop: 03/15/17 08:59 Last Admin: 01/18/17 08:08 Dose: 200 mg Famotidine (Pepcid) 20 mg PO HS [facility] Stop: 03/14/17 20:59 Last Admin: 01/18/17 23:08 Dose: Not Given Furosemide (Lasix) 20 mg PO DAILY [facility] Stop: 03/15/17 08:59 Last Admin: 01/18/17 08:10 Dose: 20 mg Haloperidol (Haldol) 5 mg PO Q6HR PRN; Protocol PRN Reason: Agitation Stop: 03/15/17 10:09 Last Admin: 01/19/17 06:30 Dose: 5 mg [place] Carbonate (Eskalith) 300 mg PO TID SERA PRN Reason: Protocol Stop: 03/20/17 08:59 Lorazepam (Ativan) 1 mg PO Q6H PRN; Protocol PRN Reason: Anxiety Stop: 03/14/17 20:27 Last Admin: 01/19/17 06:30 Dose: 1 mg Magnesium Hydroxide (Milk Of Magnesia) 30 ml PO HS PRN PRN Reason: Constipation Stop: 03/14/17 20:26 Potassium Chloride (Potassium Chloride Elixir) 8 meq PO BID [facility] Stop: 03/15/17 08:59 Last Admin: 01/18/17 17:03 Dose: 8 meq Quetiapine Fumarate (Seroquel) 100 mg PO BID SERA PRN Reason: Protocol Stop: 03/19/17 08:59 Rivaroxaban (Xarelto) 20 mg PO DAILY [facility] Stop: 03/18/17 08:59 Last Admin: 01/18/17 08:08 Dose: 20 mg Trazodone HCl (Desyrel) 100 mg PO HS [facility] Stop: 03/14/17 20:59 Last Admin: 01/18/17 23:07 Dose: Not Given General: Alert, Other (Confused) HEENT: Atraumatic Neck: Supple Cardiovascular: Regular rate Lungs: Clear to auscultation Abdomen: Bowel sounds, Soft Extremities: Other Neurological: Other (Non ambulatory) Skin: Other (Warm and dry) Psych/Mental Status: Other (Confused) Assessment/Plan - Assessment Assessment: Patient is awake, confused, agitated at moments. Today creatinine a little high. Dx: Psychosis, schizophrenia, HTN, Bipolar - Plan Plan: Patient follow by psychiatry. he is taking his meds. Will continue to monitor
[2017-01-19 09:35] LABS: % BASOPHILS 0.6 % (0.0-2.0); % EOSINOPHILS 3.8 % (0.0-5.0); % LYMPHOCYTES 20.4 % (20.0-50.0); % MONOCYTES 8.5 % (2.0-10.0); % NEUTROPHILS 66.7 % (40.0-80.0); MEAN CELL VOLUME 96.1 fl (80-99); MEAN CORPUSCULAR HEMOGLOBIN 32.8 pg (26.0-30.0); MEAN CORPUSCULAR HGB CONC 34.1 pg (28.0-36.0); MEAN PLATELET VOLUME 8.1 fl; NEUTROPHILE ABSOLUTE 5.1 Th/cmm (1.8-8.0); PLATELET COUNT 297 Th/cmm (150-400); RED BLOOD COUNT 3.96 Mil/cmm (4.30-5.70); RED CELL DISTRIBUTION WIDTH 12.9 % (11.5-20.0)
[2017-01-19 09:40] LABS: WHITE BLOOD COUNT 7.6 Th/cmm (4.8-10.8)
[2017-01-19] MEDS: Potassium Chloride Elixir 20 mEq /15 mL UDC PO SCH ×2 (09:42→18:28)
[2017-01-19 09:48] LABS: ALB/GLOB RATIO 1.1 (1.0-1.8); ALKALINE PHOSPHATASE 63 U/L (34-104); BILIRUBIN,TOTAL 0.2 mg/dL (0.3-1.0); BUN - UREA NITROGEN 27 mg/dL (7-25); BUN/CREATININE RATIO 20.8; CALCIUM SERUM 9.2 mg/dL (8.6-10.3); CARBON DIOXIDE 28.1 mEq/L (21.0-31.0); CHLORIDE 103 mEq/L (98-107); CREATININE - SERUM 1.3 mg/dL (0.7-1.3); GLUCOSE 163 mg/dL (70-105); POTASSIUM SERUM 4.1 mEq/L (3.5-5.1); SGOT 22 U/L (13-39); SGPT/ALT 15 U/L (7-52); SODIUM SERUM 132 mEq/L (136-145)
[2017-01-19] MEDS: Atorvastatin Calcium 10 MG TAB PO SCH (21:43)
[2017-01-20] MEDS: Potassium Chloride Elixir 20 mEq /15 mL UDC PO SCH ×2 (08:13→16:56)
--- NOTE | 2017-01-20 09:00 | General Progress Note ---
Subjective - Review of Systems Service Date: 01/20/17 Subjective: Patient is Confused. Objective - Results Result Diagrams: 01/19/17 09:05 01/19/17 09:05 Recent Labs: Laboratory Last Values WBC 7.6 Th/cmm (4.8-10.8) D 01/19/17 09:05 RBC 3.96 Mil/cmm (4.30-5.70) L 01/19/17 09:05 Hgb 13.0 gm/dL (13.2-17.3) L 01/19/17 09:05 Hct 38.0 % (39.0-49.0) L D 01/19/17 09:05 MCV 96.1 fl (80-99) 01/19/17 09:05 MCH 32.8 pg (26.0-30.0) H 01/19/17 09:05 MCHC Differential 34.1 pg (28.0-36.0) 01/19/17 09:05 RDW 12.9 % (11.5-20.0) 01/19/17 09:05 Plt Count 297 Th/cmm (150-400) 01/19/17 09:05 MPV 8.1 fl 01/19/17 09:05 Neutrophils % 66.7 % (40.0-80.0) 01/19/17 09:05 Lymphocytes % 20.4 % (20.0-50.0) 01/19/17 09:05 Monocytes % 8.5 % (2.0-10.0) 01/19/17 09:05 Eosinophils % 3.8 % (0.0-5.0) 01/19/17 09:05 Basophils % 0.6 % (0.0-2.0) 01/19/17 09:05 PTT (Actin FS) 24.9 SECONDS (26.0-38.0) L 01/13/17 17:33 Sodium 132 mEq/L (136-145) L 01/19/17 09:05 Potassium 4.1 mEq/L (3.5-5.1) 01/19/17 09:05 Chloride 103 mEq/L (98-107) 01/19/17 09:05 Carbon Dioxide 28.1 mEq/L (21.0-31.0) 01/19/17 09:05 Anion Gap 5.0 (7.0-16.0) L 01/19/17 09:05 BUN 27 mg/dL (7-25) H 01/19/17 09:05 Creatinine 1.3 mg/dL (0.7-1.3) 01/19/17 09:05 Est GFR ( Amer) > 60.0 ml/min (>90) 01/19/17 09:05 Est GFR (Non-Af Amer) 59.3 ml/min 01/19/17 09:05 BUN/Creatinine Ratio 20.8 01/19/17 09:05 Glucose 163 mg/dL (70-105) H 01/19/17 09:05 Calcium 9.2 mg/dL (8.6-10.3) 01/19/17 09:05 Total Bilirubin 0.2 mg/dL (0.3-1.0) L 01/19/17 09:05 AST 22 U/L (13-39) 01/19/17 09:05 ALT 15 U/L (7-52) 01/19/17 09:05 Alkaline Phosphatase 63 U/L (34-104) 01/19/17 09:05 Troponin I 0.02 ng/mL (0.01-0.05) 01/13/17 17:33 Total Protein 5.2 gm/dL (6.0-8.3) L 01/19/17 09:05 Albumin 2.7 gm/dL (4.2-5.5) L 01/19/17 09:05 Globulin 2.5 gm/dL 01/19/17 09:05 Albumin/Globulin Ratio 1.1 (1.0-1.8) 01/19/17 09:05 Triglycerides 102 mg/dL (<150) 01/13/17 17:33 Cholesterol 217 mg/dL (<200) H 01/13/17 17:33 LDL Cholesterol Direct 102 mg/dL (75-193) 01/13/17 17:33 HDL Cholesterol 87 mg/dL (23-92) 01/13/17 17:33 TSH 3.11 uIU/ml (0.34-5.60) 01/13/17 17:33 Urine Source CLEAN C 01/13/17 19:30 Urine Color PALE YELLOW 01/13/17 19:30 Urine Clarity CLEAR (CLEAR) 01/13/17 19:30 Urine pH 7.5 01/13/17 19:30 Ur Specific [place] 1.020 (1.005-1.030) 01/13/17 19:30 Urine Protein >300 mg/dL (NEGATIVE) H 01/13/17 19:30 Urine Glucose (UA) NEGATIVE mg/dL (NEGATIVE) 01/13/17 19:30 Urine Ketones NEGATIVE mg/dL (NEGATIVE) 01/13/17 19:30 Urine Blood TRACE (NEGATIVE) 01/13/17 19:30 Urine Nitrate NEGATIVE (NEGATIVE) 01/13/17 19:30 Urine Bilirubin NEGATIVE (NEGATIVE) 01/13/17 19:30 Urine Urobilinogen 0.2 E.U./dL (0.2 - 1.0) 01/13/17 19:30 Ur Leukocyte Esterase NEGATIVE (NEGATIVE) 01/13/17 19:30 Urine RBC 0-2 /hpf (0-5) H 01/13/17 19:30 Urine WBC NONE SEEN /hpf (0-5) 01/13/17 19:30 Ur Epithelial Cells NONE SEEN /lpf (FEW) 01/13/17 19:30 Urine Bacteria NONE SEEN /hpf (NONE SEEN) 01/13/17 19:30 Valproic Acid 38.8 ug/mL (50.0-100.0) L 01/13/17 17:52 [place] 0.30 MEQ/L (0.50-1.00) 01/19/17 09:05 RPR NONREACTIVE (NONREACTIVE) 01/13/17 17:33 - Physical Exam Vitals and I&O: Vital Signs Temp 97.8 F 01/18/17 14:00 Pulse 64 01/19/17 15:21 Resp 20 01/19/17 15:21 BP 128/75 01/19/17 09:43 Pulse Ox 97 01/18/17 14:00 Intake & Output 01/19/17 01/20/17 01/20/17 18:59 06:59 18:59 Intake Total 1200 Balance 1200 Intake: Oral 1200 Other: # Voids 6 # Bowel Movements 1 Stool Characteristics Formed Active Medications: Current Medications Acetaminophen (Tylenol) 650 mg PO Q6H PRN PRN Reason: Mild Pain/Headache/T above 101 Stop: 03/14/17 20:26 Last Admin: 01/17/17 20:40 Dose: 650 mg Al Hydrox/Mg Hydrox/Simethicone (Maalox) 30 ml PO Q6H PRN PRN Reason: Dyspepsia Stop: 03/14/17 20:26 Aspirin (Ecotrin) 81 mg PO DAILY [facility] Stop: 03/15/17 08:59 Last Admin: 01/20/17 08:14 Dose: 81 mg Atorvastatin Calcium (Lipitor) 10 mg PO HS [facility] PRN Reason: Protocol Stop: 03/14/17 20:59 Last Admin: 01/19/17 21:43 Dose: 10 mg Diphenhydramine HCl (Benadryl) 50 mg PO QID PRN PRN Reason: Itching Stop: 03/15/17 10:12 Last Admin: 01/19/17 21:44 Dose: 50 mg Divalproex Sodium (Depakote Dr) 500 mg PO BID [facility] PRN Reason: Protocol Stop: 03/15/17 08:59 Last Admin: 01/20/17 08:17 Dose: 500 mg Docusate Sodium (Colace) 200 mg PO DAILY [facility] Stop: 03/15/17 08:59 Last Admin: 01/20/17 08:18 Dose: 200 mg Famotidine (Pepcid) 20 mg PO HS [facility] Stop: 03/14/17 20:59 Last Admin: 01/19/17 21:43 Dose: 20 mg Furosemide (Lasix) 20 mg PO DAILY [facility] Stop: 03/15/17 08:59 Last Admin: 01/20/17 08:17 Dose: Not Given Haloperidol (Haldol) 5 mg PO Q6HR PRN; Protocol PRN Reason: Agitation Stop: 03/15/17 10:09 Last Admin: 01/19/17 21:44 Dose: 5 mg [place] Carbonate (Eskalith) 300 mg PO TID [facility] PRN Reason: Protocol Stop: 03/20/17 08:59 Last Admin: 01/20/17 08:18 Dose: 300 mg Lorazepam (Ativan) 1 mg PO Q6H PRN; Protocol PRN Reason: Anxiety Stop: 03/14/17 20:27 Last Admin: 01/19/17 21:44 Dose: 1 mg Magnesium Hydroxide (Milk Of Magnesia) 30 ml PO HS PRN PRN Reason: Constipation Stop: 03/14/17 20:26 Potassium Chloride (Potassium Chloride Elixir) 8 meq PO BID [facility] Stop: 03/15/17 08:59 Last Admin: 01/20/17 08:13 Dose: 8 meq Quetiapine Fumarate (Seroquel) 100 mg PO BID [facility] PRN Reason: Protocol Stop: 03/19/17 08:59 Last Admin: 01/20/17 08:13 Dose: 100 mg Rivaroxaban (Xarelto) 20 mg PO DAILY [facility] Stop: 03/18/17 08:59 Last Admin: 01/20/17 08:13 Dose: 20 mg Trazodone HCl (Desyrel) 100 mg PO HS [facility] Stop: 03/14/17 20:59 Last Admin: 01/19/17 21:43 Dose: 100 mg General: Alert, Other (Confused) HEENT: Atraumatic Neck: Supple Cardiovascular: Regular rate Lungs: Clear to auscultation Abdomen: Bowel sounds, Soft Extremities: Other (No edema) Neurological: Other (Non ambulatory) Skin: Other (Warm and dry) Psych/Mental Status: Other (Confused) Assessment/Plan - Assessment Assessment: Patient is awake, confused. yesterday labs were done and Creatinine is normal, Na a little low. Dx: Psychosis, schizophrenia, HTN, Bipolar - Plan Plan: Patient follow by psychiatry. he is taking his meds. Will continue to monitor. Nutritional Asmnt/Malnutr-PDOC - Dietary Evaluation Malnutrition Findings (Please click <Entered> for more info): Nutritional Asmnt/Malnutrition Start: 01/19/17 12: 41 Text: Status: Complete Freq: Document 01/19/17 12:41 MOHIT (Rec: 01/19/17 13:03 MOHIT [id number]) Nutritional Asmnt/Malnutrition Patient General Information Nutritional Screening Diagnosis Diagnosis Schizoaffective disorder Pertinent Medical Hx/Surgical Hx COPD, seizure disorder, psychosis, HTN, bipolar, schizophrenia Subjective Information 61 year old male from SNF. Pt was very agitated and verbally aggressive during visit, refused to speak to RD. Observed pt in wheelchair, unable to complete physical assessment. Spoke to [employer]ING [employer]PERVISOR, WATCH [employer]CTURING SUPERVISOR stated pt with good appetite, no nutritional concerns. Avg PO intake 84% of meals past 5 days, meeting nutritional needs. Current Diet Order/ Nutrition Support Regular Pertinent Medications Maalox, Lipitor, Colace, Pepcid, Lasic, Haldol, MOM, Seroquel Pertinent Labs 01/13: BUN 31H, creatinine 1.4H 01/19: BUN 27H, creatinine 1.3 (improved), glucose 163H (no DM noted in H&P) Nutritional Hx/Data Height 1.83 m Height (Calculated Centimeters) 182.9 Current Weight (lbs) 97.976 kg Weight (Calculated Kilograms) 98.0 Weight (Calculated Grams) 36180.0 [place] Body Weight 178lb Weight Status Overweight GI Symptoms Usual diet at home [facility]: regular, thin liquids, large portion lunch Skin Integrity/Comment: [place] 17. lathe hand: right forearm scratch, left leg blister Current %PO Good (75-100%) Estimated Nutritional Goals Calories/Kcals/Kg IBW 178lb/80.9kg Kcals Calculated 2022-2427kcal (25-30kcal/kg) Protein Calculated 81g (1g/kg) Fluid: ml 2022-2427ml (1ml/kcal) Nutritional Problem 1. Problem Problem No nutritional problem at this time. Intervention/Recommendation Comments 1. Continue with current diet order. Avg PO intake is adequate. Expected Outcomes/Goals Expected Outcomes/Goals 1. PO intake continue to meet at least 75% of estimated nutritional needs.
[2017-01-20] MEDS ORDERED: chlorproMAZINE 25 mg/mL 2mL Amp ONE (13:29)
[2017-01-20] MEDS ORDERED: chlorproMAZINE 25 mg/mL 2mL Amp IM STA (13:29)
[2017-01-20] MEDS: Atorvastatin Calcium 10 MG TAB PO SCH (20:43)
[2017-01-21] MEDS: Potassium Chloride Elixir 20 mEq /15 mL UDC PO SCH ×2 (08:29→16:46)
[2017-01-21] MEDS ORDERED: Lithium Citrate 300 mg/5 mL Soln UDC NG ONE (11:19)
--- NOTE | 2017-01-21 11:26 | General Progress Note ---
Subjective - Review of Systems Service Date: 01/21/17 Events since last encounter: patient is still agitated. parnoid and testing limits. his lithium level is low.he has no insight into hios illness. He needs redirection. Impulse control is poor. his insight and judgement are poor.no side effects to meds are noted. Plan to increase the dose of lituim and change to li. Citrate.he is not ready to discharge to a lower level of care. Objective - Results Result Diagrams: 01/19/17 09:05 01/19/17 09:05 Recent Labs: Laboratory Last Values WBC 7.6 Th/cmm (4.8-10.8) D 01/19/17 09:05 RBC 3.96 Mil/cmm (4.30-5.70) L 01/19/17 09:05 Hgb 13.0 gm/dL (13.2-17.3) L 01/19/17 09:05 Hct 38.0 % (39.0-49.0) L D 01/19/17 09:05 MCV 96.1 fl (80-99) 01/19/17 09:05 MCH 32.8 pg (26.0-30.0) H 01/19/17 09:05 MCHC Differential 34.1 pg (28.0-36.0) 01/19/17 09:05 RDW 12.9 % (11.5-20.0) 01/19/17 09:05 Plt Count 297 Th/cmm (150-400) 01/19/17 09:05 MPV 8.1 fl 01/19/17 09:05 Neutrophils % 66.7 % (40.0-80.0) 01/19/17 09:05 Lymphocytes % 20.4 % (20.0-50.0) 01/19/17 09:05 Monocytes % 8.5 % (2.0-10.0) 01/19/17 09:05 Eosinophils % 3.8 % (0.0-5.0) 01/19/17 09:05 Basophils % 0.6 % (0.0-2.0) 01/19/17 09:05 PTT (Actin FS) 24.9 SECONDS (26.0-38.0) L 01/13/17 17:33 Sodium 132 mEq/L (136-145) L 01/19/17 09:05 Potassium 4.1 mEq/L (3.5-5.1) 01/19/17 09:05 Chloride 103 mEq/L (98-107) 01/19/17 09:05 Carbon Dioxide 28.1 mEq/L (21.0-31.0) 01/19/17 09:05 Anion Gap 5.0 (7.0-16.0) L 01/19/17 09:05 BUN 27 mg/dL (7-25) H 01/19/17 09:05 Creatinine 1.3 mg/dL (0.7-1.3) 01/19/17 09:05 Est GFR ( Amer) > 60.0 ml/min (>90) 01/19/17 09:05 Est GFR (Non-Af Amer) 59.3 ml/min 01/19/17 09:05 BUN/Creatinine Ratio 20.8 01/19/17 09:05 Glucose 163 mg/dL (70-105) H 01/19/17 09:05 Calcium 9.2 mg/dL (8.6-10.3) 01/19/17 09:05 Total Bilirubin 0.2 mg/dL (0.3-1.0) L 01/19/17 09:05 AST 22 U/L (13-39) 01/19/17 09:05 ALT 15 U/L (7-52) 01/19/17 09:05 Alkaline Phosphatase 63 U/L (34-104) 01/19/17 09:05 Troponin I 0.02 ng/mL (0.01-0.05) 01/13/17 17:33 Total Protein 5.2 gm/dL (6.0-8.3) L 01/19/17 09:05 Albumin 2.7 gm/dL (4.2-5.5) L 01/19/17 09:05 Globulin 2.5 gm/dL 01/19/17 09:05 Albumin/Globulin Ratio 1.1 (1.0-1.8) 01/19/17 09:05 Triglycerides 102 mg/dL (<150) 01/13/17 17:33 Cholesterol 217 mg/dL (<200) H 01/13/17 17:33 LDL Cholesterol Direct 102 mg/dL (75-193) 01/13/17 17:33 HDL Cholesterol 87 mg/dL (23-92) 01/13/17 17:33 TSH 3.11 uIU/ml (0.34-5.60) 01/13/17 17:33 Urine Source CLEAN C 01/13/17 19:30 Urine Color PALE YELLOW 01/13/17 19:30 Urine Clarity CLEAR (CLEAR) 01/13/17 19:30 Urine pH 7.5 01/13/17 19:30 Ur Specific [place] 1.020 (1.005-1.030) 01/13/17 19:30 Urine Protein >300 mg/dL (NEGATIVE) H 01/13/17 19:30 Urine Glucose (UA) NEGATIVE mg/dL (NEGATIVE) 01/13/17 19:30 Urine Ketones NEGATIVE mg/dL (NEGATIVE) 01/13/17 19:30 Urine Blood TRACE (NEGATIVE) 01/13/17 19:30 Urine Nitrate NEGATIVE (NEGATIVE) 01/13/17 19:30 Urine Bilirubin NEGATIVE (NEGATIVE) 01/13/17 19:30 Urine Urobilinogen 0.2 E.U./dL (0.2 - 1.0) 01/13/17 19:30 Ur Leukocyte Esterase NEGATIVE (NEGATIVE) 01/13/17 19:30 Urine RBC 0-2 /hpf (0-5) H 01/13/17 19:30 Urine WBC NONE SEEN /hpf (0-5) 01/13/17 19:30 Ur Epithelial Cells NONE SEEN /lpf (FEW) 01/13/17 19:30 Urine Bacteria NONE SEEN /hpf (NONE SEEN) 01/13/17 19:30 Valproic Acid 38.8 ug/mL (50.0-100.0) L 01/13/17 17:52 [place] 0.30 MEQ/L (0.50-1.00) 01/19/17 09:05 RPR NONREACTIVE (NONREACTIVE) 01/13/17 17:33 - Physical Exam Vitals and I&O: Vital Signs Temp 0 F 01/21/17 06:53 Pulse 61 01/20/17 16:05 Resp 20 01/20/17 20:00 BP 125/74 01/20/17 16:05 Pulse Ox 98 01/20/17 16:05 Intake & Output 01/20/17 01/21/17 01/21/17 18:59 06:59 18:59 Intake Total 1000 120 Balance 1000 120 Intake: Oral 1000 120 Other: # Voids 4 3 # Bowel Movements 1 0 Active Medications: Current Medications Acetaminophen (Tylenol) 650 mg PO Q6H PRN PRN Reason: Mild Pain/Headache/T above 101 Stop: 03/14/17 20:26 Last Admin: 01/17/17 20:40 Dose: 650 mg [place] Hydrox/Mg Hydrox/Simethicone (Maalox) 30 ml PO Q6H PRN PRN Reason: Dyspepsia Stop: 03/14/17 20:26 Aspirin (Ecotrin) 81 mg PO DAILY [facility] Stop: 03/15/17 08:59 Last Admin: 01/21/17 08:31 Dose: 81 mg Atorvastatin Calcium (Lipitor) 10 mg PO HS [facility] PRN Reason: Protocol Stop: 03/14/17 20:59 Last Admin: 01/20/17 20:43 Dose: 10 mg Diphenhydramine HCl (Benadryl) 50 mg PO QID PRN PRN Reason: Itching Stop: 03/15/17 10:12 Last Admin: 01/20/17 16:56 Dose: 50 mg Divalproex Sodium (Depakote Dr) 500 mg PO BID [facility] PRN Reason: Protocol Stop: 03/15/17 08:59 Last Admin: 01/21/17 08:31 Dose: 500 mg Docusate Sodium (Colace) 200 mg PO DAILY [facility] Stop: 03/15/17 08:59 Last Admin: 01/21/17 08:31 Dose: 200 mg Famotidine (Pepcid) 20 mg PO HS [facility] Stop: 03/14/17 20:59 Last Admin: 01/20/17 20:43 Dose: 20 mg Furosemide (Lasix) 20 mg PO DAILY [facility] Stop: 03/15/17 08:59 Last Admin: 01/21/17 08:31 Dose: Not Given Haloperidol (Haldol) 5 mg PO Q6HR PRN; Protocol PRN Reason: Agitation Stop: 03/15/17 10:09 Last Admin: 01/21/17 08:31 Dose: 5 mg [place] Citrate (Eskalith) 600 mg NG BID [facility] PRN Reason: Protocol Stop: 03/22/17 16:59 [place] Citrate (Eskalith) 300 mg NG X1 ONE PRN Reason: Protocol Stop: 01/21/17 11:20 Lorazepam (Ativan) 1 mg PO Q6H PRN; Protocol PRN Reason: Anxiety Stop: 03/14/17 20:27 Last Admin: 01/20/17 16:55 Dose: 1 mg Magnesium Hydroxide (Milk Of Magnesia) 30 ml PO HS PRN PRN Reason: Constipation Stop: 03/14/17 20:26 Potassium Chloride (Potassium Chloride Elixir) 8 meq PO BID [facility] Stop: 03/15/17 08:59 Last Admin: 01/21/17 08:29 Dose: 8 meq Quetiapine Fumarate (Seroquel) 100 mg PO BID [facility] PRN Reason: Protocol Stop: 03/19/17 08:59 Last Admin: 01/21/17 08:30 Dose: 100 mg Rivaroxaban (Xarelto) 20 mg PO DAILY SERA Stop: 03/18/17 08:59 Last Admin: 01/21/17 08:31 Dose: 20 mg Trazodone HCl (Desyrel) 100 mg PO HS SERA Stop: 03/14/17 20:59 Last Admin: 01/20/17 20:43 Dose: 100 mg Nutritional Asmnt/Malnutr-PDOC - Dietary Evaluation Malnutrition Findings (Please click <Entered> for more info): Nutritional Asmnt/Malnutrition Start: 01/19/17 12: 41 Text: Status: Complete Freq: Document 01/19/17 12:41 GSUN (Rec: 01/19/17 13:03 [id number]) Nutritional Asmnt/Malnutrition Patient General Information Nutritional Screening Diagnosis Diagnosis Schizoaffective disorder Pertinent Medical Hx/Surgical Hx COPD, seizure disorder, psychosis, HTN, bipolar, schizophrenia Subjective Information 61 year old male from SNF. Pt was very agitated and verbally aggressive during visit, refused to speak to RD. Observed pt in wheelchair, unable to complete physical assessment. Spoke to FRANKFURTER INSPECTOR, FRANKFURTER INSPECTOR stated pt with good appetite, no nutritional concerns. Avg PO intake 84% of meals past 5 days, meeting nutritional needs. Current Diet Order/ Nutrition Support Regular Pertinent Medications Maalox, Lipitor, Colace, Pepcid, Lasic, Haldol, MOM, Seroquel Pertinent Labs 01/13: BUN 31H, creatinine 1.4H 01/19: BUN 27H, creatinine 1.3 (improved), glucose 163H (no DM noted in H&P) Nutritional Hx/Data Height 1.83 m Height (Calculated Centimeters) 182.9 Current Weight (lbs) 97.976 kg Weight (Calculated Kilograms) 98.0 Weight (Calculated Grams) 16468.0 [place] Body Weight 178lb Weight Status Overweight GI Symptoms Usual diet at home [facility]: regular, thin liquids, large portion lunch Skin Integrity/Comment: Rocky Silva. [employer] cook: right forearm scratch, left leg blister Current %PO Good (75-100%) Estimated Nutritional Goals Calories/Kcals/Kg IBW 178lb/80.9kg Kcals Calculated 2022-2427kcal (25-30kcal/kg) Protein Calculated 81g (1g/kg) Fluid: ml 2022-2427ml (1ml/kcal) Nutritional Problem 1. Problem Problem No nutritional problem at this time. Intervention/Recommendation Comments 1. Continue with current diet order. Avg PO intake is adequate. Expected Outcomes/Goals Expected Outcomes/Goals 1. PO intake continue to meet at least 75% of estimated nutritional needs.
--- NOTE | 2017-01-21 15:24 | General Progress Note ---
Subjective - Review of Systems Subjective: Patient is Confused. Objective - Results Result Diagrams: 01/19/17 09:05 01/19/17 09:05 Recent Labs: Laboratory Last Values WBC 7.6 Th/cmm (4.8-10.8) D 01/19/17 09:05 RBC 3.96 Mil/cmm (4.30-5.70) L 01/19/17 09:05 Hgb 13.0 gm/dL (13.2-17.3) L 01/19/17 09:05 Hct 38.0 % (39.0-49.0) L D 01/19/17 09:05 MCV 96.1 fl (80-99) 01/19/17 09:05 MCH 32.8 pg (26.0-30.0) H 01/19/17 09:05 MCHC Differential 34.1 pg (28.0-36.0) 01/19/17 09:05 RDW 12.9 % (11.5-20.0) 01/19/17 09:05 Plt Count 297 Th/cmm (150-400) 01/19/17 09:05 MPV 8.1 fl 01/19/17 09:05 Neutrophils % 66.7 % (40.0-80.0) 01/19/17 09:05 Lymphocytes % 20.4 % (20.0-50.0) 01/19/17 09:05 Monocytes % 8.5 % (2.0-10.0) 01/19/17 09:05 Eosinophils % 3.8 % (0.0-5.0) 01/19/17 09:05 Basophils % 0.6 % (0.0-2.0) 01/19/17 09:05 PTT (Actin FS) 24.9 SECONDS (26.0-38.0) L 01/13/17 17:33 Sodium 132 mEq/L (136-145) L 01/19/17 09:05 Potassium 4.1 mEq/L (3.5-5.1) 01/19/17 09:05 Chloride 103 mEq/L (98-107) 01/19/17 09:05 Carbon Dioxide 28.1 mEq/L (21.0-31.0) 01/19/17 09:05 Anion Gap 5.0 (7.0-16.0) L 01/19/17 09:05 BUN 27 mg/dL (7-25) H 01/19/17 09:05 Creatinine 1.3 mg/dL (0.7-1.3) 01/19/17 09:05 Est GFR ( Amer) > 60.0 ml/min (>90) 01/19/17 09:05 Est GFR (Non-Af Amer) 59.3 ml/min 01/19/17 09:05 BUN/Creatinine Ratio 20.8 01/19/17 09:05 Glucose 163 mg/dL (70-105) H 01/19/17 09:05 Calcium 9.2 mg/dL (8.6-10.3) 01/19/17 09:05 Total Bilirubin 0.2 mg/dL (0.3-1.0) L 01/19/17 09:05 AST 22 U/L (13-39) 01/19/17 09:05 ALT 15 U/L (7-52) 01/19/17 09:05 Alkaline Phosphatase 63 U/L (34-104) 01/19/17 09:05 Troponin I 0.02 ng/mL (0.01-0.05) 01/13/17 17:33 Total Protein 5.2 gm/dL (6.0-8.3) L 01/19/17 09:05 Albumin 2.7 gm/dL (4.2-5.5) L 01/19/17 09:05 Globulin 2.5 gm/dL 01/19/17 09:05 Albumin/Globulin Ratio 1.1 (1.0-1.8) 01/19/17 09:05 Triglycerides 102 mg/dL (<150) 01/13/17 17:33 Cholesterol 217 mg/dL (<200) H 01/13/17 17:33 LDL Cholesterol Direct 102 mg/dL (75-193) 01/13/17 17:33 HDL Cholesterol 87 mg/dL (23-92) 01/13/17 17:33 TSH 3.11 uIU/ml (0.34-5.60) 01/13/17 17:33 Urine Source CLEAN C 01/13/17 19:30 Urine Color PALE YELLOW 01/13/17 19:30 Urine Clarity CLEAR (CLEAR) 01/13/17 19:30 Urine pH 7.5 01/13/17 19:30 Ur Specific [place] 1.020 (1.005-1.030) 01/13/17 19:30 Urine Protein >300 mg/dL (NEGATIVE) H 01/13/17 19:30 Urine Glucose (UA) NEGATIVE mg/dL (NEGATIVE) 01/13/17 19:30 Urine Ketones NEGATIVE mg/dL (NEGATIVE) 01/13/17 19:30 Urine Blood TRACE (NEGATIVE) 01/13/17 19:30 Urine Nitrate NEGATIVE (NEGATIVE) 01/13/17 19:30 Urine Bilirubin NEGATIVE (NEGATIVE) 01/13/17 19:30 Urine Urobilinogen 0.2 E.U./dL (0.2 - 1.0) 01/13/17 19:30 Ur Leukocyte Esterase NEGATIVE (NEGATIVE) 01/13/17 19:30 Urine RBC 0-2 /hpf (0-5) H 01/13/17 19:30 Urine WBC NONE SEEN /hpf (0-5) 01/13/17 19:30 Ur Epithelial Cells NONE SEEN /lpf (FEW) 01/13/17 19:30 Urine Bacteria NONE SEEN /hpf (NONE SEEN) 01/13/17 19:30 Valproic Acid 38.8 ug/mL (50.0-100.0) L 01/13/17 17:52 [place] 0.30 MEQ/L (0.50-1.00) 01/19/17 09:05 RPR NONREACTIVE (NONREACTIVE) 01/13/17 17:33 - Physical Exam Vitals and I&O: Vital Signs Temp 0 F 01/21/17 06:53 Pulse 61 01/21/17 14:52 Resp 20 01/20/17 20:00 BP 125/74 01/20/17 16:05 Pulse Ox 98 01/20/17 16:05 Intake & Output 01/20/17 01/21/17 01/21/17 18:59 06:59 18:59 Intake Total 1000 120 Balance 1000 120 Intake: Oral 1000 120 Other: # Voids 4 3 # Bowel Movements 1 0 Active Medications: Current Medications Acetaminophen (Tylenol) 650 mg PO Q6H PRN PRN Reason: Mild Pain/Headache/T above 101 Stop: 03/14/17 20:26 Last Admin: 01/17/17 20:40 Dose: 650 mg Al Hydrox/Mg Hydrox/Simethicone (Maalox) 30 ml PO Q6H PRN PRN Reason: Dyspepsia Stop: 03/14/17 20:26 Aspirin (Ecotrin) 81 mg PO DAILY SERA Stop: 03/15/17 08:59 Last Admin: 01/21/17 08:31 Dose: 81 mg Atorvastatin Calcium (Lipitor) 10 mg PO HS SERA PRN Reason: Protocol Stop: 03/14/17 20:59 Last Admin: 01/20/17 20:43 Dose: 10 mg Diphenhydramine HCl (Benadryl) 50 mg PO QID PRN PRN Reason: Itching Stop: 03/15/17 10:12 Last Admin: 01/20/17 16:56 Dose: 50 mg Divalproex Sodium (Depakote Dr) 500 mg PO BID SERA PRN Reason: Protocol Stop: 03/15/17 08:59 Last Admin: 01/21/17 08:31 Dose: 500 mg Docusate Sodium (Colace) 200 mg PO DAILY SERA Stop: 03/15/17 08:59 Last Admin: 01/21/17 08:31 Dose: 200 mg Famotidine (Pepcid) 20 mg PO HS SERA Stop: 03/14/17 20:59 Last Admin: 01/20/17 20:43 Dose: 20 mg Furosemide (Lasix) 20 mg PO DAILY SERA Stop: 03/15/17 08:59 Last Admin: 01/21/17 08:31 Dose: Not Given Haloperidol (Haldol) 5 mg PO Q6HR PRN; Protocol PRN Reason: Agitation Stop: 03/15/17 10:09 Last Admin: 01/21/17 08:31 Dose: 5 mg [place] Carbonate (Eskalith) 600 mg PO BID SERA Stop: 03/22/17 16:59 Lorazepam (Ativan) 1 mg PO Q6H PRN; Protocol PRN Reason: Anxiety Stop: 03/14/17 20:27 Last Admin: 01/20/17 16:55 Dose: 1 mg Magnesium Hydroxide (Milk Of Magnesia) 30 ml PO HS PRN PRN Reason: Constipation Stop: 03/14/17 20:26 Potassium Chloride (Potassium Chloride Elixir) 8 meq PO BID SERA Stop: 03/15/17 08:59 Last Admin: 01/21/17 08:29 Dose: 8 meq Quetiapine Fumarate (Seroquel) 100 mg PO BID [facility] PRN Reason: Protocol Stop: 03/19/17 08:59 Last Admin: 01/21/17 08:30 Dose: 100 mg Rivaroxaban (Xarelto) 20 mg PO DAILY [facility] Stop: 03/18/17 08:59 Last Admin: 01/21/17 08:31 Dose: 20 mg Trazodone HCl (Desyrel) 100 mg PO HS [facility] Stop: 03/14/17 20:59 Last Admin: 01/20/17 20:43 Dose: 100 mg Physical Exam: Patient is Confused. General: Alert, Other (Confused) HEENT: Atraumatic Neck: Supple Cardiovascular: Regular rate Lungs: Clear to auscultation Abdomen: Bowel sounds, Soft Extremities: Other (No edema) Neurological: Other (Non ambulatorio) Skin: Other (Warm and dry) Psych/Mental Status: Other (Confused) Assessment/Plan - Assessment Assessment: Patient is awake, confused. yesterday labs were done and Creatinine is normal, Na a little low. Dx: Psychosis, schizophrenia, HTN, Bipolar - Plan Plan: Patient follow by psychiatry. he is taking his meds. Will continue to monitor. Nutritional Asmnt/Malnutr-PDOC - Dietary Evaluation Malnutrition Findings (Please click <Entered> for more info): Nutritional Asmnt/Malnutrition Start: 01/19/17 12: 41 Text: Status: Complete Freq: Document 01/19/17 12:41 GSUN (Rec: 01/19/17 13:03 [id number]) Nutritional Asmnt/Malnutrition Patient General Information Nutritional Screening Diagnosis Diagnosis Schizoaffective disorder Pertinent Medical Hx/Surgical Hx COPD, seizure disorder, psychosis, HTN, bipolar, schizophrenia Subjective Information 61 year old male from SNF. Pt was very agitated and verbally aggressive during visit, refused to speak to RD. Observed pt in wheelchair, unable to complete physical assessment. Spoke to COMMERCIAL STRIPPER, COMMERCIAL STRIPPER stated pt with good appetite, no nutritional concerns. Avg PO intake 84% of meals past 5 days, meeting nutritional needs. 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 Problem Problem No nutritional problem at this time. Intervention/Recommendation Comments 1. Continue with current diet order. Avg PO intake is adequate. Expected Outcomes/Goals Expected Outcomes/Goals 1. PO intake continue to meet at least 75% of estimated nutritional needs.
[2017-01-21] MEDS ORDERED: Lithium Citrate 300 mg/5 mL Soln UDC NG SCH (17:00)
[2017-01-21] MEDS: Atorvastatin Calcium 10 MG TAB PO SCH (20:53)
[2017-01-22] MEDS: Potassium Chloride Elixir 20 mEq /15 mL UDC PO SCH ×2 (08:48→16:57)
--- NOTE | 2017-01-22 13:46 | Geri Psych Progress Note ---
[facility] Psych Progress Note - Intro Patient was seen: 01/22/17 - Assessment Assessment: Still agitated. - Vitals, I&O Vitals: Vital Signs - 24 hr 01/21/17 01/21/17 01/21/17 14:00 14:52 20:00 Temp 98.2 F HR 60 HR [Radial] 61 RR 20 20 BP 112/70 O2 Sat % 96 01/22/17 01/22/17 01/22/17 06:44 08:47 12:57 Temp 98.2 F HR 72 HR [Radial] 72 RR 20 20 BP 104/63 104/63 O2 Sat % I&O: Intake & Output 01/20/17 01/21/17 01/22/17 01/23/17 06:59 06:59 06:59 06:59 Intake Total 1200 1120 1220 Balance 1200 1120 1220 - ROS Neurological: Report: Other (None) Psychological ROS: Report: Hostility, Irritability, Mood swings - Objective Psych General Appearance: Report: No acute distress Psych Behavior: Report: Alert, Uncooperative Psych Speech: Report: Coherent Psych Mood: Report: Angry, Frustrated, Labile Psych Affect: Report: Inappropriate Psych Thought Process: Report: Flight of Ideas Psych Cognition: Report: Memory generally intact Psych Insight: Report: Impaired Psych Judgement: Report: Impaired - Plan Plan: to continue lithium and get blood levels. Use haldol as PRN. - Review of Relevant Data Review of Relevant Data: I have reviewed the following items and time danica (where applicable) has been applied. Psych Data Reviewed: Meds - Diagnosis Diagnosis: Schizo affective Disorder. - Medications Current Medications: Current Medications Acetaminophen (Tylenol) 650 mg PO Q6H PRN PRN Reason: Mild Pain/Headache/T above 101 Stop: 03/14/17 20:26 Last Admin: 01/17/17 20:40 Dose: 650 mg Al Hydrox/Mg Hydrox/Simethicone (Maalox) 30 ml PO Q6H PRN PRN Reason: Dyspepsia Stop: 03/14/17 20:26 Aspirin (Ecotrin) 81 mg PO DAILY SERA Stop: 03/15/17 08:59 Last Admin: 01/22/17 08:47 Dose: 81 mg Atorvastatin Calcium (Lipitor) 10 mg PO HS SERA PRN Reason: Protocol Stop: 03/14/17 20:59 Last Admin: 01/21/17 20:53 Dose: 10 mg Diphenhydramine HCl (Benadryl) 50 mg PO QID PRN PRN Reason: Itching Stop: 03/15/17 10:12 Last Admin: 01/22/17 08:47 Dose: 50 mg Divalproex Sodium (Depakote Dr) 500 mg PO BID SERA PRN Reason: Protocol Stop: 03/15/17 08:59 Last Admin: 01/22/17 08:46 Dose: 500 mg Docusate Sodium (Colace) 200 mg PO DAILY SERA Stop: 03/15/17 08:59 Last Admin: 01/22/17 08:46 Dose: 200 mg Famotidine (Pepcid) 20 mg PO HS SERA Stop: 03/14/17 20:59 Last Admin: 01/21/17 20:53 Dose: 20 mg Furosemide (Lasix) 20 mg PO DAILY SERA Stop: 03/15/17 08:59 Last Admin: 01/22/17 08:47 Dose: 20 mg Haloperidol (Haldol) 5 mg PO Q6HR PRN; Protocol PRN Reason: Agitation Stop: 03/15/17 10:09 Last Admin: 01/22/17 08:47 Dose: 5 mg [place] Carbonate (Eskalith) 600 mg PO BID SERA Stop: 03/22/17 16:59 Last Admin: 01/22/17 08:46 Dose: 600 mg Lorazepam (Ativan) 1 mg PO Q6H PRN; Protocol PRN Reason: Anxiety Stop: 03/14/17 20:27 Last Admin: 01/22/17 08:46 Dose: 1 mg Magnesium Hydroxide (Milk Of Magnesia) 30 ml PO HS PRN PRN Reason: Constipation Stop: 03/14/17 20:26 Potassium Chloride (Potassium Chloride Elixir) 8 meq PO BID SERA Stop: 03/15/17 08:59 Last Admin: 01/22/17 08:48 Dose: 8 meq Quetiapine Fumarate (Seroquel) 100 mg PO BID SERA PRN Reason: Protocol Stop: 03/19/17 08:59 Last Admin: 01/22/17 08:47 Dose: 100 mg Rivaroxaban (Xarelto) 20 mg PO DAILY SERA Stop: 03/18/17 08:59 Last Admin: 07/02/17 08:46 Dose: 20 mg Trazodone HCl (Desyrel) 100 mg PO HS [facility] Stop: 03/14/17 20:59 Last Admin: 01/21/17 20:53 Dose: 100 mg
[2017-01-22] MEDS: Atorvastatin Calcium 10 MG TAB PO SCH (20:33)
[2017-01-23] MEDS: Potassium Chloride Elixir 20 mEq /15 mL UDC PO SCH ×2 (08:06→16:35)
--- NOTE | 2017-01-23 08:57 | General Progress Note ---
Subjective - Review of Systems Service Date: 01/23/17 Subjective: Patient is Confused. Objective - Results Result Diagrams: 01/19/17 09:05 01/19/17 09:05 Recent Labs: Laboratory Last Values WBC 7.6 Th/cmm (4.8-10.8) D 01/19/17 09:05 RBC 3.96 Mil/cmm (4.30-5.70) L 01/19/17 09:05 Hgb 13.0 gm/dL (13.2-17.3) L 01/19/17 09:05 Hct 38.0 % (39.0-49.0) L D 01/19/17 09:05 MCV 96.1 fl (80-99) 01/19/17 09:05 MCH 32.8 pg (26.0-30.0) H 01/19/17 09:05 MCHC Differential 34.1 pg (28.0-36.0) 01/19/17 09:05 RDW 12.9 % (11.5-20.0) 01/19/17 09:05 Plt Count 297 Th/cmm (150-400) 01/19/17 09:05 MPV 8.1 fl 01/19/17 09:05 Neutrophils % 66.7 % (40.0-80.0) 01/19/17 09:05 Lymphocytes % 20.4 % (20.0-50.0) 01/19/17 09:05 Monocytes % 8.5 % (2.0-10.0) 01/19/17 09:05 Eosinophils % 3.8 % (0.0-5.0) 01/19/17 09:05 Basophils % 0.6 % (0.0-2.0) 01/19/17 09:05 PTT (Actin FS) 24.9 SECONDS (26.0-38.0) L 01/13/17 17:33 Sodium 132 mEq/L (136-145) L 01/19/17 09:05 Potassium 4.1 mEq/L (3.5-5.1) 01/19/17 09:05 Chloride 103 mEq/L (98-107) 01/19/17 09:05 Carbon Dioxide 28.1 mEq/L (21.0-31.0) 01/19/17 09:05 Anion Gap 5.0 (7.0-16.0) L 01/19/17 09:05 BUN 27 mg/dL (7-25) H 01/19/17 09:05 Creatinine 1.3 mg/dL (0.7-1.3) 01/19/17 09:05 Est GFR ( Amer) > 60.0 ml/min (>90) 01/19/17 09:05 Est GFR (Non-Af Amer) 59.3 ml/min 01/19/17 09:05 BUN/Creatinine Ratio 20.8 01/19/17 09:05 Glucose 163 mg/dL (70-105) H 01/19/17 09:05 Calcium 9.2 mg/dL (8.6-10.3) 01/19/17 09:05 Total Bilirubin 0.2 mg/dL (0.3-1.0) L 01/19/17 09:05 AST 22 U/L (13-39) 01/19/17 09:05 ALT 15 U/L (7-52) 01/19/17 09:05 Alkaline Phosphatase 63 U/L (34-104) 01/19/17 09:05 Troponin I 0.02 ng/mL (0.01-0.05) 01/13/17 17:33 Total Protein 5.2 gm/dL (6.0-8.3) L 01/19/17 09:05 Albumin 2.7 gm/dL (4.2-5.5) L 01/19/17 09:05 Globulin 2.5 gm/dL 01/19/17 09:05 Albumin/Globulin Ratio 1.1 (1.0-1.8) 01/19/17 09:05 Triglycerides 102 mg/dL (<150) 01/13/17 17:33 Cholesterol 217 mg/dL (<200) H 01/13/17 17:33 LDL Cholesterol Direct 102 mg/dL (75-193) 01/13/17 17:33 HDL Cholesterol 87 mg/dL (23-92) 01/13/17 17:33 TSH 3.11 uIU/ml (0.34-5.60) 01/13/17 17:33 Urine Source CLEAN C 01/13/17 19:30 Urine Color PALE YELLOW 01/13/17 19:30 Urine Clarity CLEAR (CLEAR) 01/13/17 19:30 Urine pH 7.5 01/13/17 19:30 Ur Specific [place] 1.020 (1.005-1.030) 01/13/17 19:30 Urine Protein >300 mg/dL (NEGATIVE) H 01/13/17 19:30 Urine Glucose (UA) NEGATIVE mg/dL (NEGATIVE) 01/13/17 19:30 Urine Ketones NEGATIVE mg/dL (NEGATIVE) 01/13/17 19:30 Urine Blood TRACE (NEGATIVE) 01/13/17 19:30 Urine Nitrate NEGATIVE (NEGATIVE) 01/13/17 19:30 Urine Bilirubin NEGATIVE (NEGATIVE) 01/13/17 19:30 Urine Urobilinogen 0.2 E.U./dL (0.2 - 1.0) 01/13/17 19:30 Ur Leukocyte Esterase NEGATIVE (NEGATIVE) 01/13/17 19:30 Urine RBC 0-2 /hpf (0-5) H 01/13/17 19:30 Urine WBC NONE SEEN /hpf (0-5) 01/13/17 19:30 Ur Epithelial Cells NONE SEEN /lpf (FEW) 01/13/17 19:30 Urine Bacteria NONE SEEN /hpf (NONE SEEN) 01/13/17 19:30 Valproic Acid 38.8 ug/mL (50.0-100.0) L 01/13/17 17:52 [place] 0.30 MEQ/L (0.50-1.00) 01/19/17 09:05 RPR NONREACTIVE (NONREACTIVE) 01/13/17 17:33 - Physical Exam Vitals and I&O: Vital Signs Temp 97.9 F 01/23/17 06:26 Pulse 80 01/23/17 06:26 Resp 19 01/23/17 06:26 BP 127/85 01/23/17 08:06 Pulse Ox 96 01/23/17 06:26 Intake & Output 01/22/17 01/23/17 01/23/17 18:59 06:59 18:59 Intake Total 1000 480 Balance 1000 480 Intake: Oral 1000 480 Other: # Voids 4 2 # Bowel Movements 1 0 Stool Characteristics Formed Active Medications: Current Medications Acetaminophen (Tylenol) 650 mg PO Q6H PRN PRN Reason: Mild Pain/Headache/T above 101 Stop: 03/14/17 20:26 Last Admin: 01/17/17 20:40 Dose: 650 mg Al Hydrox/Mg Hydrox/Simethicone (Maalox) 30 ml PO Q6H PRN PRN Reason: Dyspepsia Stop: 03/14/17 20:26 Aspirin (Ecotrin) 81 mg PO DAILY SERA Stop: 03/15/17 08:59 Last Admin: 01/23/17 08:06 Dose: 81 mg Atorvastatin Calcium (Lipitor) 10 mg PO HS SERA PRN Reason: Protocol Stop: 03/14/17 20:59 Last Admin: 01/22/17 20:33 Dose: 10 mg Diphenhydramine HCl (Benadryl) 50 mg PO QID PRN PRN Reason: Itching Stop: 03/15/17 10:12 Last Admin: 01/22/17 08:47 Dose: 50 mg Divalproex Sodium (Depakote Dr) 500 mg PO BID SERA PRN Reason: Protocol Stop: 03/15/17 08:59 Last Admin: 01/23/17 08:05 Dose: 500 mg Docusate Sodium (Colace) 200 mg PO DAILY SERA Stop: 03/15/17 08:59 Last Admin: 01/23/17 08:05 Dose: 200 mg Famotidine (Pepcid) 20 mg PO HS SERA Stop: 03/14/17 20:59 Last Admin: 01/22/17 20:33 Dose: 20 mg Furosemide (Lasix) 20 mg PO DAILY SERA Stop: 03/15/17 08:59 Last Admin: 01/23/17 08:06 Dose: 20 mg Haloperidol (Haldol) 5 mg PO Q6HR PRN; Protocol PRN Reason: Agitation Stop: 03/15/17 10:09 Last Admin: 01/22/17 08:47 Dose: 5 mg [place] Carbonate (Eskalith) 600 mg PO BID SERA Stop: 03/22/17 16:59 Last Admin: 01/23/17 08:05 Dose: 600 mg Lorazepam (Ativan) 1 mg PO Q6H PRN; Protocol PRN Reason: Anxiety Stop: 03/14/17 20:27 Last Admin: 01/23/17 08:12 Dose: 1 mg [place] Hydroxide (Milk Of Magnesia) 30 ml PO HS PRN PRN Reason: Constipation Stop: 03/14/17 20:26 Potassium Chloride (Potassium Chloride Elixir) 8 meq PO BID SERA Stop: 03/15/17 08:59 Last Admin: 01/23/17 08:06 Dose: 8 meq Quetiapine Fumarate (Seroquel) 100 mg PO BID [facility] PRN Reason: Protocol Stop: 03/19/17 08:59 Last Admin: 01/23/17 08:06 Dose: 100 mg Rivaroxaban (Xarelto) 20 mg PO DAILY [facility] Stop: 03/18/17 08:59 Last Admin: 01/23/17 08:06 Dose: 20 mg Trazodone HCl (Desyrel) 100 mg PO HS [facility] Stop: 03/14/17 20:59 Last Admin: 01/22/17 20:33 Dose: 100 mg Physical Exam: Patient is Confused. General: Alert, Other (Confused) HEENT: Atraumatic Neck: Supple Cardiovascular: Regular rate Lungs: Clear to auscultation Abdomen: Bowel sounds, Soft Extremities: Other (No edema) Neurological: Other (Non ambulatory) Skin: Other (Warm and dry) Psych/Mental Status: Other (Confused) Assessment/Plan - Assessment Assessment: Patient is awake, confused. yesterday labs were done and Creatinine is normal, Na a little low. Dx: Psychosis, schizophrenia, HTN, Bipolar. - Plan Plan: Patient follow by psychiatry. he is taking his meds. Will continue to monitor. Nutritional Asmnt/Malnutr-PDOC - Dietary Evaluation Malnutrition Findings (Please click <Entered> for more info): Nutritional Asmnt/Malnutrition Start: 01/19/17 12: 41 Text: Status: Complete Freq: Document 01/19/17 12:41 MOHIT (Rec: 01/19/17 13:03 MOHIT [email or web address]) Nutritional Asmnt/Malnutrition Patient General Information Nutritional Screening Diagnosis Diagnosis Schizoaffective disorder Pertinent Medical Hx/Surgical Hx COPD, seizure disorder, psychosis, HTN, bipolar, schizophrenia Subjective Information 61 year old male from SNF. Pt was very agitated and verbally aggressive during visit, refused to speak to RD. Observed pt in wheelchair, unable to complete physical assessment. Spoke to HARDWARE SALES ASSISTANT, HARDWARE SALES ASSISTANT stated pt with good appetite, no nutritional concerns. Avg PO intake 84% of meals past 5 days, meeting nutritional needs. 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 Problem Problem No nutritional problem at this time. Intervention/Recommendation Comments 1. Continue with current diet order. Avg PO intake is adequate. Expected Outcomes/Goals Expected Outcomes/Goals 1. PO intake continue to meet at least 75% of estimated nutritional needs.
--- NOTE | 2017-01-23 10:01 | Geri Psych Progress Note ---
[facility] Psych Progress Note - Intro Patient was seen: 01/23/17. - Assessment Assessment: Very agitated. - Vitals, I&O Vitals: Vital Signs - 24 hr 01/22/17 01/22/17 01/22/17 12:57 14:00 20:00 Temp 98.0 F HR 78 HR [Radial] 72 RR 20 20 20 BP 113/74 O2 Sat % 97 01/22/17 01/23/17 01/23/17 20:30 06:26 08:06 Temp 98.2 F 97.9 F HR 80 80 HR [Radial] RR 19 19 BP 103/68 127/85 127/85 O2 Sat % 97 96 I&O: Intake & Output 01/21/17 01/22/17 01/23/17 01/24/17 06:59 06:59 06:59 06:59 Intake Total 1120 1220 1480 Balance 1120 1220 1480 - ROS Neurological: Report: Other (None) Psychological ROS: Report: Hostility, Irritability, Mood swings - Objective Psych General Appearance: Report: No acute distress, Casually dressed, Disheveled Psych Behavior: Report: Alert, Uncooperative, Confrontational Psych Speech: Report: Loud Psych Mood: Report: Angry, Frustrated, Irritable, Labile Psych Affect: Report: Inappropriate, Increased Intensity Psych Thought Process: Report: Flight of Ideas Psych Cognition: Report: Memory generally intact Psych Insight: Report: Impaired Psych Judgement: Report: Impaired - Plan Plan: T increase the dose of seroquel to 200 mg BID and ti increase the dose of Depakote.. To continue supportive therapy and follow pt. - Review of Relevant Data Review of Relevant Data: I have reviewed the following items and time danica (where applicable) has been applied. Psych Data Reviewed: Meds - Diagnosis Diagnosis: Schizo affective Disorder. - Medications Current Medications: Current Medications Acetaminophen (Tylenol) 650 mg PO Q6H PRN PRN Reason: Mild Pain/Headache/T above 101 Stop: 03/14/17 20:26 Last Admin: 01/17/17 20:40 Dose: 650 mg Al Hydrox/Mg Hydrox/Simethicone (Maalox) 30 ml PO Q6H PRN PRN Reason: Dyspepsia Stop: 03/14/17 20:26 Aspirin (Ecotrin) 81 mg PO DAILY [facility] Stop: 03/15/17 08:59 Last Admin: 01/23/17 08:06 Dose: 81 mg Atorvastatin Calcium (Lipitor) 10 mg PO HS [facility]A PRN Reason: Protocol Stop: 03/14/17 20:59 Last Admin: 01/22/17 20:33 Dose: 10 mg Diphenhydramine HCl (Benadryl) 50 mg PO QID PRN PRN Reason: Itching Stop: 03/15/17 10:12 Last Admin: 01/22/17 08:47 Dose: 50 mg Divalproex Sodium (Depakote Dr) 500 mg PO TID SERA PRN Reason: Protocol Stop: 03/24/17 13:59 Docusate Sodium (Colace) 200 mg PO DAILY SERA Stop: 03/15/17 08:59 Last Admin: 01/23/17 08:05 Dose: 200 mg Famotidine (Pepcid) 20 mg PO HS SERA Stop: 03/14/17 20:59 Last Admin: 01/22/17 20:33 Dose: 20 mg Furosemide (Lasix) 20 mg PO DAILY SERA Stop: 03/15/17 08:59 Last Admin: 01/23/17 08:06 Dose: 20 mg Haloperidol (Haldol) 5 mg PO Q6HR PRN; Protocol PRN Reason: Agitation Stop: 03/15/17 10:09 Last Admin: 01/22/17 08:47 Dose: 5 mg [place] Carbonate (Eskalith) 600 mg PO BID SERA Stop: 03/22/17 16:59 Last Admin: 01/23/17 08:05 Dose: 600 mg Lorazepam (Ativan) 1 mg PO Q6H PRN; Protocol PRN Reason: Anxiety Stop: 03/14/17 20:27 Last Admin: 01/23/17 08:12 Dose: 1 mg Magnesium Hydroxide (Milk Of Magnesia) 30 ml PO HS PRN PRN Reason: Constipation Stop: 03/14/17 20:26 Potassium Chloride (Potassium Chloride Elixir) 8 meq PO BID SERA Stop: 03/15/17 08:59 Last Admin: 01/23/17 08:06 Dose: 8 meq Quetiapine Fumarate (Seroquel) 200 mg PO BID SERA PRN Reason: Protocol Stop: 03/24/17 16:59 Rivaroxaban (Xarelto) 20 mg PO DAILY SERA Stop: 03/18/17 08:59 Last Admin: 01/23/17 08:06 Dose: 20 mg Trazodone HCl (Desyrel) 100 mg PO SERA Stop: 03/14/17 20:59 Last Admin: 01/22/17 20:33 Dose: 100 mg
[2017-01-23] MEDS: Atorvastatin Calcium 10 MG TAB PO SCH (20:55)
[2017-01-24] MEDS: Potassium Chloride Elixir 20 mEq /15 mL UDC PO SCH ×2 (08:31→16:50)
--- NOTE | 2017-01-24 11:29 | Geri Psych Progress Note ---
[facility] Psych Progress Note - Intro Patient was seen: 01/24/17. - Assessment Assessment: Still has mood swings. - Vitals, I&O Vitals: Vital Signs - 24 hr 01/23/17 01/24/17 01/24/17 15:51 06:32 08:32 Temp 98.0 F 97.5 F HR 78 86 RR 20 20 BP 130/80 135/60 135/60 O2 Sat % 96 93 I&O: Intake & Output 01/22/17 01/23/17 01/24/17 01/25/17 06:59 06:59 06:59 06:59 Intake Total 1220 1480 1240 Balance 1220 1480 1240 - ROS Neurological: Report: Other (none.) Psychological ROS: Report: Hostility, Irritability, Mood swings - Objective Psych General Appearance: Report: No acute distress Psych Behavior: Report: Uncooperative, Agitated, Confrontational Psych Speech: Report: Coherent, Loud Psych Mood: Report: Angry, Frustrated, Hostile Psych Affect: Report: Anxious, Inappropriate, Varibable Psych Thought Process: Report: Flight of Ideas Psych Cognition: Report: Grossly Intact Psych Insight: Report: Impaired Psych Judgement: Report: Impaired - Plan Plan: Continue currrent meds and follow up with supportive care. - Review of Relevant Data Review of Relevant Data: I have reviewed the following items and time danica (where applicable) has been applied. Psych Data Reviewed: Meds - Diagnosis Diagnosis: Schizo affective Disorder. - Medications Current Medications: Current Medications Acetaminophen (Tylenol) 650 mg PO Q6H PRN PRN Reason: Mild Pain/Headache/T above 101 Stop: 03/14/17 20:26 Last Admin: 01/17/17 20:40 Dose: 650 mg Al Hydrox/Mg Hydrox/Simethicone (Maalox) 30 ml PO Q6H PRN PRN Reason: Dyspepsia Stop: 03/14/17 20:26 Aspirin (Ecotrin) 81 mg PO DAILY [facility] Stop: 03/15/17 08:59 Last Admin: 01/24/17 08:34 Dose: 81 mg Atorvastatin Calcium (Lipitor) 10 mg PO HS [facility] PRN Reason: Protocol Stop: 03/14/17 20:59 Last Admin: 01/23/17 20:55 Dose: 10 mg Diphenhydramine HCl (Benadryl) 50 mg PO QID PRN PRN Reason: Itching Stop: 03/15/17 10:12 Last Admin: 01/22/17 08:47 Dose: 50 mg Divalproex Sodium (Depakote Dr) 500 mg PO TID [facility] PRN Reason: Protocol Stop: 03/24/17 13:59 Last Admin: 01/24/17 08:34 Dose: 500 mg Docusate Sodium (Colace) 200 mg PO DAILY [facility] Stop: 03/15/17 08:59 Last Admin: 01/24/17 08:33 Dose: 200 mg Famotidine (Pepcid) 20 mg PO HS [facility] Stop: 03/14/17 20:59 Last Admin: 01/23/17 20:54 Dose: 20 mg Furosemide (Lasix) 20 mg PO DAILY [facility] Stop: 03/15/17 08:59 Last Admin: 01/24/17 08:32 Dose: 20 mg Haloperidol (Haldol) 5 mg PO Q6HR PRN; Protocol PRN Reason: Agitation Stop: 03/15/17 10:09 Last Admin: 01/23/17 13:15 Dose: 5 mg [place] Carbonate (Eskalith) 600 mg PO BID [facility] Stop: 03/22/17 16:59 Last Admin: 01/24/17 08:34 Dose: 600 mg Lorazepam (Ativan) 1 mg PO Q6H PRN; Protocol PRN Reason: Anxiety Stop: 03/14/17 20:27 Last Admin: 01/24/17 08:32 Dose: 1 mg Magnesium Hydroxide (Milk Of Magnesia) 30 ml PO HS PRN PRN Reason: Constipation Stop: 03/14/17 20:26 Potassium Chloride (Potassium Chloride Elixir) 8 meq PO BID [facility] Stop: 03/15/17 08:59 Last Admin: 01/24/17 08:31 Dose: 8 meq Quetiapine Fumarate (Seroquel) 200 mg PO BID [facility] PRN Reason: Protocol Stop: 03/24/17 16:59 Last Admin: 01/24/17 08:29 Dose: 200 mg Rivaroxaban (Xarelto) 20 mg PO DAILY [facility] Stop: 03/18/17 08:59 Last Admin: 01/24/17 08:31 Dose: 20 mg Trazodone HCl (Desyrel) 100 mg PO HS [facility] Stop: 03/14/17 20:59 Last Admin: 01/23/17 20:55 Dose: 100 mg
--- NOTE | 2017-01-24 12:09 | General Progress Note ---
Subjective - Review of Systems Service Date: 01/24/17 Subjective: Patient is Confused. Objective - Results Result Diagrams: 01/19/17 09:05 01/19/17 09:05 Recent Labs: Laboratory Last Values WBC 7.6 Th/cmm (4.8-10.8) D 01/19/17 09:05 RBC 3.96 Mil/cmm (4.30-5.70) L 01/19/17 09:05 Hgb 13.0 gm/dL (13.2-17.3) L 01/19/17 09:05 Hct 38.0 % (39.0-49.0) L D 01/19/17 09:05 MCV 96.1 fl (80-99) 01/19/17 09:05 MCH 32.8 pg (26.0-30.0) H 01/19/17 09:05 MCHC Differential 34.1 pg (28.0-36.0) 01/19/17 09:05 RDW 12.9 % (11.5-20.0) 01/19/17 09:05 Plt Count 297 Th/cmm (150-400) 01/19/17 09:05 MPV 8.1 fl 01/19/17 09:05 Neutrophils % 66.7 % (40.0-80.0) 01/19/17 09:05 Lymphocytes % 20.4 % (20.0-50.0) 01/19/17 09:05 Monocytes % 8.5 % (2.0-10.0) 01/19/17 09:05 Eosinophils % 3.8 % (0.0-5.0) 01/19/17 09:05 Basophils % 0.6 % (0.0-2.0) 01/19/17 09:05 PTT (Actin FS) 24.9 SECONDS (26.0-38.0) L 01/13/17 17:33 Sodium 132 mEq/L (136-145) L 01/19/17 09:05 Potassium 4.1 mEq/L (3.5-5.1) 01/19/17 09:05 Chloride 103 mEq/L (98-107) 01/19/17 09:05 Carbon Dioxide 28.1 mEq/L (21.0-31.0) 01/19/17 09:05 Anion Gap 5.0 (7.0-16.0) L 01/19/17 09:05 BUN 27 mg/dL (7-25) H 01/19/17 09:05 Creatinine 1.3 mg/dL (0.7-1.3) 01/19/17 09:05 Est GFR ( Amer) > 60.0 ml/min (>90) 01/19/17 09:05 Est GFR (Non-Af Amer) 59.3 ml/min 01/19/17 09:05 BUN/Creatinine Ratio 20.8 01/19/17 09:05 Glucose 163 mg/dL (70-105) H 01/19/17 09:05 Calcium 9.2 mg/dL (8.6-10.3) 01/19/17 09:05 Total Bilirubin 0.2 mg/dL (0.3-1.0) L 01/19/17 09:05 AST 22 U/L (13-39) 01/19/17 09:05 ALT 15 U/L (7-52) 01/19/17 09:05 Alkaline Phosphatase 63 U/L (34-104) 01/19/17 09:05 Troponin I 0.02 ng/mL (0.01-0.05) 01/13/17 17:33 Total Protein 5.2 gm/dL (6.0-8.3) L 01/19/17 09:05 Albumin 2.7 gm/dL (4.2-5.5) L 01/19/17 09:05 Globulin 2.5 gm/dL 01/19/17 09:05 Albumin/Globulin Ratio 1.1 (1.0-1.8) 01/19/17 09:05 Triglycerides 102 mg/dL (<150) 01/13/17 17:33 Cholesterol 217 mg/dL (<200) H 01/13/17 17:33 LDL Cholesterol Direct 102 mg/dL (75-193) 01/13/17 17:33 HDL Cholesterol 87 mg/dL (23-92) 01/13/17 17:33 TSH 3.11 uIU/ml (0.34-5.60) 01/13/17 17:33 Urine Source CLEAN C 01/13/17 19:30 Urine Color PALE YELLOW 01/13/17 19:30 Urine Clarity CLEAR (CLEAR) 01/13/17 19:30 Urine pH 7.5 01/13/17 19:30 Ur Specific [place] 1.020 (1.005-1.030) 01/13/17 19:30 Urine Protein >300 mg/dL (NEGATIVE) H 01/13/17 19:30 Urine Glucose (UA) NEGATIVE mg/dL (NEGATIVE) 01/13/17 19:30 Urine Ketones NEGATIVE mg/dL (NEGATIVE) 01/13/17 19:30 Urine Blood TRACE (NEGATIVE) 01/13/17 19:30 Urine Nitrate NEGATIVE (NEGATIVE) 01/13/17 19:30 Urine Bilirubin NEGATIVE (NEGATIVE) 01/13/17 19:30 Urine Urobilinogen 0.2 E.U./dL (0.2 - 1.0) 01/13/17 19:30 Ur Leukocyte Esterase NEGATIVE (NEGATIVE) 01/13/17 19:30 Urine RBC 0-2 /hpf (0-5) H 01/13/17 19:30 Urine WBC NONE SEEN /hpf (0-5) 01/13/17 19:30 Ur Epithelial Cells NONE SEEN /lpf (FEW) 01/13/17 19:30 Urine Bacteria NONE SEEN /hpf (NONE SEEN) 01/13/17 19:30 Valproic Acid 38.8 ug/mL (50.0-100.0) L 01/13/17 17:52 [place] 0.30 MEQ/L (0.50-1.00) 01/19/17 09:05 RPR NONREACTIVE (NONREACTIVE) 01/13/17 17:33 - Physical Exam Vitals and I&O: Vital Signs Temp 97.5 F 01/24/17 06:32 Pulse 86 01/24/17 06:32 Resp 20 01/24/17 06:32 BP 135/60 01/24/17 08:32 Pulse Ox 93 01/24/17 06:32 Intake & Output 01/23/17 01/24/17 01/24/17 18:59 06:59 18:59 Intake Total 1000 240 Balance 1000 240 Intake: Oral 1000 240 Other: # Voids 4 4 # Bowel Movements 1 0 Active Medications: Current Medications Acetaminophen (Tylenol) 650 mg PO Q6H PRN PRN Reason: Mild Pain/Headache/T above 101 Stop: 03/14/17 20:26 Last Admin: 01/17/17 20:40 Dose: 650 mg Al Hydrox/Mg Hydrox/Simethicone (Maalox) 30 ml PO Q6H PRN PRN Reason: Dyspepsia Stop: 03/14/17 20:26 Aspirin (Ecotrin) 81 mg PO DAILY [facility] Stop: 03/15/17 08:59 Last Admin: 01/24/17 08:34 Dose: 81 mg Atorvastatin Calcium (Lipitor) 10 mg PO HS [facility] PRN Reason: Protocol Stop: 03/14/17 20:59 Last Admin: 01/23/17 20:55 Dose: 10 mg Diphenhydramine HCl (Benadryl) 50 mg PO QID PRN PRN Reason: Itching Stop: 03/15/17 10:12 Last Admin: 01/22/17 08:47 Dose: 50 mg Divalproex Sodium (Depakote Dr) 500 mg PO TID [facility] PRN Reason: Protocol Stop: 03/24/17 13:59 Last Admin: 01/24/17 08:34 Dose: 500 mg Docusate Sodium (Colace) 200 mg PO DAILY [facility] Stop: 03/15/17 08:59 Last Admin: 01/24/17 08:33 Dose: 200 mg Famotidine (Pepcid) 20 mg PO HS [facility] Stop: 03/14/17 20:59 Last Admin: 01/23/17 20:54 Dose: 20 mg Furosemide (Lasix) 20 mg PO DAILY [facility] Stop: 03/15/17 08:59 Last Admin: 01/24/17 08:32 Dose: 20 mg Haloperidol (Haldol) 5 mg PO Q6HR PRN; Protocol PRN Reason: Agitation Stop: 03/15/17 10:09 Last Admin: 01/23/17 13:15 Dose: 5 mg [place] Carbonate (Eskalith) 600 mg PO BID [facility] Stop: 03/22/17 16:59 Last Admin: 01/24/17 08:34 Dose: 600 mg Lorazepam (Ativan) 1 mg PO Q6H PRN; Protocol PRN Reason: Anxiety Stop: 03/14/17 20:27 Last Admin: 01/24/17 08:32 Dose: 1 mg Magnesium Hydroxide (Milk Of Magnesia) 30 ml PO HS PRN PRN Reason: Constipation Stop: 03/14/17 20:26 Potassium Chloride (Potassium Chloride Elixir) 8 meq PO BID [facility] Stop: 03/15/17 08:59 Last Admin: 01/24/17 08:31 Dose: 8 meq Quetiapine Fumarate (Seroquel) 200 mg PO BID [facility] PRN Reason: Protocol Stop: 03/24/17 16:59 Last Admin: 01/24/17 08:29 Dose: 200 mg Rivaroxaban (Xarelto) 20 mg PO DAILY [facility] Stop: 03/18/17 08:59 Last Admin: 01/24/17 08:31 Dose: 20 mg Trazodone HCl (Desyrel) 100 mg PO HS [facility] Stop: 03/14/17 20:59 Last Admin: 01/23/17 20:55 Dose: 100 mg General: Alert, Other (confused) HEENT: Atraumatic Neck: Supple Cardiovascular: Regular rate Lungs: Clear to auscultation Abdomen: Bowel sounds, Soft Extremities: Other (No edema) Neurological: Other (Non ambulatory) Skin: Other (Warm and dry) Psych/Mental Status: Other (Confused) Assessment/Plan - Assessment Assessment: Patient is awake, confused. yesterday labs were done and Creatinine is normal, Na a little low. Dx: Psychosis, schizophrenia, HTN, Bipolar. - Plan Plan: Patient follow by psychiatry. he is taking his meds. Will continue to monitor. Nutritional Asmnt/Malnutr-PDOC - Dietary Evaluation Malnutrition Findings (Please click <Entered> for more info): Nutritional Asmnt/Malnutrition Start: 01/19/17 12: 41 Text: Status: Complete Freq: Document 01/19/17 12:41 MUKESH (Rec: 01/19/17 13:03 MOHIT [email or web address]) Nutritional Asmnt/Malnutrition Patient General Information Nutritional Screening Diagnosis Diagnosis Schizoaffective disorder Pertinent Medical Hx/Surgical Hx COPD, seizure disorder, psychosis, HTN, bipolar, schizophrenia Subjective Information 61 year old male from SNF. Pt was very agitated and verbally aggressive during visit, refused to speak to RD. Observed pt in wheelchair, unable to complete physical assessment. Spoke to KNOWLEDGE ANALYST, KNOWLEDGE ANALYST stated pt with good appetite, no nutritional concerns. Avg PO intake 84% of meals past 5 days, meeting nutritional needs. 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 Problem Problem No nutritional problem at this time. Intervention/Recommendation Comments 1. Continue with current diet order. Avg PO intake is adequate. Expected Outcomes/Goals Expected Outcomes/Goals 1. PO intake continue to meet at least 75% of estimated nutritional needs.
[2017-01-24] MEDS: Atorvastatin Calcium 10 MG TAB PO SCH (20:48)
[2017-01-25] MEDS: Potassium Chloride Elixir 20 mEq /15 mL UDC PO SCH ×2 (08:49→16:42)
--- NOTE | 2017-01-25 09:12 | General Progress Note ---
Subjective - Review of Systems Service Date: 01/25/17 Subjective: Patient is Confused. Objective - Results Result Diagrams: 01/19/17 09:05 01/19/17 09:05 Recent Labs: Laboratory Last Values WBC 7.6 Th/cmm (4.8-10.8) D 01/19/17 09:05 RBC 3.96 Mil/cmm (4.30-5.70) L 01/19/17 09:05 Hgb 13.0 gm/dL (13.2-17.3) L 01/19/17 09:05 Hct 38.0 % (39.0-49.0) L D 01/19/17 09:05 MCV 96.1 fl (80-99) 01/19/17 09:05 MCH 32.8 pg (26.0-30.0) H 01/19/17 09:05 MCHC Differential 34.1 pg (28.0-36.0) 01/19/17 09:05 RDW 12.9 % (11.5-20.0) 01/19/17 09:05 Plt Count 297 Th/cmm (150-400) 01/19/17 09:05 MPV 8.1 fl 01/19/17 09:05 Neutrophils % 66.7 % (40.0-80.0) 01/19/17 09:05 Lymphocytes % 20.4 % (20.0-50.0) 01/19/17 09:05 Monocytes % 8.5 % (2.0-10.0) 01/19/17 09:05 Eosinophils % 3.8 % (0.0-5.0) 01/19/17 09:05 Basophils % 0.6 % (0.0-2.0) 01/19/17 09:05 PTT (Actin FS) 24.9 SECONDS (26.0-38.0) L 01/13/17 17:33 Sodium 132 mEq/L (136-145) L 01/19/17 09:05 Potassium 4.1 mEq/L (3.5-5.1) 01/19/17 09:05 Chloride 103 mEq/L (98-107) 01/19/17 09:05 Carbon Dioxide 28.1 mEq/L (21.0-31.0) 01/19/17 09:05 Anion Gap 5.0 (7.0-16.0) L 01/19/17 09:05 BUN 27 mg/dL (7-25) H 01/19/17 09:05 Creatinine 1.3 mg/dL (0.7-1.3) 01/19/17 09:05 Est GFR ( Amer) > 60.0 ml/min (>90) 01/19/17 09:05 Est GFR (Non-Af Amer) 59.3 ml/min 01/19/17 09:05 BUN/Creatinine Ratio 20.8 01/19/17 09:05 Glucose 163 mg/dL (70-105) H 01/19/17 09:05 Calcium 9.2 mg/dL (8.6-10.3) 01/19/17 09:05 Total Bilirubin 0.2 mg/dL (0.3-1.0) L 01/19/17 09:05 AST 22 U/L (13-39) 01/19/17 09:05 ALT 15 U/L (7-52) 01/19/17 09:05 Alkaline Phosphatase 63 U/L (34-104) 01/19/17 09:05 Troponin I 0.02 ng/mL (0.01-0.05) 01/13/17 17:33 Total Protein 5.2 gm/dL (6.0-8.3) L 01/19/17 09:05 Albumin 2.7 gm/dL (4.2-5.5) L 01/19/17 09:05 Globulin 2.5 gm/dL 01/19/17 09:05 Albumin/Globulin Ratio 1.1 (1.0-1.8) 01/19/17 09:05 Triglycerides 102 mg/dL (<150) 01/13/17 17:33 Cholesterol 217 mg/dL (<200) H 01/13/17 17:33 LDL Cholesterol Direct 102 mg/dL (75-193) 01/13/17 17:33 HDL Cholesterol 87 mg/dL (23-92) 01/13/17 17:33 TSH 3.11 uIU/ml (0.34-5.60) 01/13/17 17:33 Urine Source CLEAN C 01/13/17 19:30 Urine Color PALE YELLOW 01/13/17 19:30 Urine Clarity CLEAR (CLEAR) 01/13/17 19:30 Urine pH 7.5 01/13/17 19:30 Ur Specific [place] 1.020 (1.005-1.030) 01/13/17 19:30 Urine Protein >300 mg/dL (NEGATIVE) H 01/13/17 19:30 Urine Glucose (UA) NEGATIVE mg/dL (NEGATIVE) 01/13/17 19:30 Urine Ketones NEGATIVE mg/dL (NEGATIVE) 01/13/17 19:30 Urine Blood TRACE (NEGATIVE) 01/13/17 19:30 Urine Nitrate NEGATIVE (NEGATIVE) 01/13/17 19:30 Urine Bilirubin NEGATIVE (NEGATIVE) 01/13/17 19:30 Urine Urobilinogen 0.2 E.U./dL (0.2 - 1.0) 01/13/17 19:30 Ur Leukocyte Esterase NEGATIVE (NEGATIVE) 01/13/17 19:30 Urine RBC 0-2 /hpf (0-5) H 01/13/17 19:30 Urine WBC NONE SEEN /hpf (0-5) 01/13/17 19:30 Ur Epithelial Cells NONE SEEN /lpf (FEW) 01/13/17 19:30 Urine Bacteria NONE SEEN /hpf (NONE SEEN) 01/13/17 19:30 Valproic Acid 38.8 ug/mL (50.0-100.0) L 01/13/17 17:52 [place] 0.30 MEQ/L (0.50-1.00) 01/19/17 09:05 RPR NONREACTIVE (NONREACTIVE) 01/13/17 17:33 - Physical Exam Vitals and I&O: Vital Signs Temp 98.1 F 01/25/17 06:03 Pulse 81 01/25/17 06:03 Resp 19 01/25/17 06:03 BP 137/73 01/25/17 08:49 Pulse Ox 96 01/25/17 06:03 Intake & Output 01/24/17 01/25/17 01/25/17 18:59 06:59 18:59 Intake Total 1200 720 Balance 1200 720 Intake: Oral 1200 720 Other: # Voids 4 2 # Bowel Movements 1 Active Medications: Current Medications Acetaminophen (Tylenol) 650 mg PO Q6H PRN PRN Reason: Mild Pain/Headache/T above 101 Stop: 03/14/17 20:26 Last Admin: 01/17/17 20:40 Dose: 650 mg Al Hydrox/Mg Hydrox/Simethicone (Maalox) 30 ml PO Q6H PRN PRN Reason: Dyspepsia Stop: 03/14/17 20:26 Aspirin (Ecotrin) 81 mg PO DAILY [facility] Stop: 03/15/17 08:59 Last Admin: 01/25/17 08:49 Dose: 81 mg Atorvastatin Calcium (Lipitor) 10 mg PO HS [facility] PRN Reason: Protocol Stop: 03/14/17 20:59 Last Admin: 01/24/17 20:48 Dose: 10 mg Diphenhydramine HCl (Benadryl) 50 mg PO QID PRN PRN Reason: Itching Stop: 03/15/17 10:12 Last Admin: 01/24/17 14:41 Dose: 50 mg Divalproex Sodium (Depakote Dr) 500 mg PO TID [facility] PRN Reason: Protocol Stop: 03/24/17 13:59 Last Admin: 01/25/17 08:48 Dose: 500 mg Docusate Sodium (Colace) 200 mg PO DAILY [facility] Stop: 03/15/17 08:59 Last Admin: 01/25/17 08:50 Dose: Not Given Famotidine (Pepcid) 20 mg PO HS [facility] Stop: 03/14/17 20:59 Last Admin: 01/24/17 20:49 Dose: 20 mg Furosemide (Lasix) 20 mg PO DAILY [facility] Stop: 03/15/17 08:59 Last Admin: 01/25/17 08:49 Dose: 20 mg Haloperidol (Haldol) 5 mg PO Q6HR PRN; Protocol PRN Reason: Agitation Stop: 03/15/17 10:09 Last Admin: 01/24/17 14:41 Dose: 5 mg [place] Carbonate (Eskalith) 600 mg PO BID [facility] Stop: 03/22/17 16:59 Last Admin: 01/25/17 08:48 Dose: 600 mg Lorazepam (Ativan) 1 mg PO Q6H PRN; Protocol PRN Reason: Anxiety Stop: 03/14/17 20:27 Last Admin: 01/25/17 08:49 Dose: 1 mg [place] Hydroxide (Milk Of Magnesia) 30 ml PO HS PRN PRN Reason: Constipation Stop: 03/14/17 20:26 Potassium Chloride (Potassium Chloride Elixir) 8 meq PO BID [facility] Stop: 03/15/17 08:59 Last Admin: 01/25/17 08:49 Dose: 8 meq Quetiapine Fumarate (Seroquel) 200 mg PO BID [facility] PRN Reason: Protocol Stop: 03/24/17 16:59 Last Admin: 01/25/17 08:49 Dose: 200 mg Trazodone HCl (Desyrel) 100 mg PO HS [facility] Stop: 03/14/17 20:59 Last Admin: 01/24/17 20:48 Dose: 100 mg General: Alert, Other (Confused) HEENT: Atraumatic Neck: Supple Cardiovascular: Regular rate Lungs: Clear to auscultation Abdomen: Bowel sounds, Soft Extremities: Other (No edema) Neurological: Other (Non ambulatory) Skin: Other (Warm and dry) Psych/Mental Status: Other (Confused) Assessment/Plan - Assessment Assessment: Patient is awake, confused. yesterday labs were done and Creatinine is normal, Na a little low. Dx: Psychosis, schizophrenia, HTN, Bipolar. - Plan Plan: Patient follow by psychiatry. he is taking his meds. Will continue to monitor. Nutritional Asmnt/Malnutr-PDOC - Dietary Evaluation Malnutrition Findings (Please click <Entered> for more info): Nutritional Asmnt/Malnutrition Start: 01/19/17 12: 41 Text: Status: Complete Freq: Document 01/19/17 12:41 MOHIT (Rec: 01/19/17 13:03 MOHIT [email or web address]) Nutritional Asmnt/Malnutrition Patient General Information Nutritional Screening Diagnosis Diagnosis Schizoaffective disorder Pertinent Medical Hx/Surgical Hx COPD, seizure disorder, psychosis, HTN, bipolar, schizophrenia Subjective Information 61 year old male from SNF. Pt was very agitated and verbally aggressive during visit, refused to speak to RD. Observed pt in wheelchair, unable to complete physical assessment. Spoke to TAX AUDITOR, TAX AUDITOR stated pt with good appetite, no nutritional concerns. Avg PO intake 84% of meals past 5 days, meeting nutritional needs. 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 Problem Problem No nutritional problem at this time. Intervention/Recommendation Comments 1. Continue with current diet order. Avg PO intake is adequate. Expected Outcomes/Goals Expected Outcomes/Goals 1. PO intake continue to meet at least 75% of estimated nutritional needs.
--- NOTE | 2017-01-25 11:02 | Geri Psych Progress Note ---
[facility] Psych Progress Note - Intro Patient was seen: Patient was seen on 01/25/17 at 9 AM. - Assessment Assessment: Patient still continues to be having acute mood swings and needs to be closely monitored and redirected. - Vitals, I&O Vitals: Vital Signs - 24 hr 01/24/17 01/25/17 01/25/17 14:00 06:03 08:49 Temp 98.6 F 98.1 F HR 84 81 RR 20 19 BP 128/76 137/73 137/73 O2 Sat % 98 96 I&O: Intake & Output 01/23/17 01/24/17 01/25/17 01/26/17 06:59 06:59 06:59 06:59 Intake Total 1480 1240 1920 Balance 1480 1240 1920 - ROS Neurological: Report: Other (None.) Psychological ROS: Report: Hallucinations, Hostility, Irritability - Objective Psych Objective: Patient continues to be agitated and significant with her vitamins impaired impulse control symptoms before and has been having acute mood swings and is needing more and more redirection from the staff members. Patient continues to be paranoid. However has been denying any command hallucinations inserted judgment are still impaired at this time and patient has no placementor effect of the medications noted Psych General Appearance: Report: Other (see psych objective) Psych Behavior: Report: Other (see psych objective) Psych Speech: Report: Other (see psych objective) Psych Mood: Report: Other (see psych objective) Psych Affect: Report: Other (see psych objective) Psych Thought Process: Report: Other (see psych objective) Psych Cognition: Report: Other (see psych objective) Psych Insight: Report: Other (see psych objective) Psych Judgement: Report: Other (see psych objective) - Plan Plan: Plan to continue the patient with the current medications encouraged him to verbalize her concerns and act thank you this is the end of dictation - Review of Relevant Data Review of Relevant Data: I have reviewed the following items and time danica (where applicable) has been applied. Psych Data Reviewed: Meds - Medications Current Medications: Current Medications Acetaminophen (Tylenol) 650 mg PO Q6H PRN PRN Reason: Mild Pain/Headache/T above 101 Stop: 03/14/17 20:26 Last Admin: 01/17/17 20:40 Dose: 650 mg Al Hydrox/Mg Hydrox/Simethicone (Maalox) 30 ml PO Q6H PRN PRN Reason: Dyspepsia Stop: 03/14/17 20:26 Aspirin (Ecotrin) 81 mg PO DAILY [facility] Stop: 03/15/17 08:59 Last Admin: 01/25/17 08:49 Dose: 81 mg Atorvastatin Calcium (Lipitor) 10 mg PO HS SERA PRN Reason: Protocol Stop: 03/14/17 20:59 Last Admin: 01/24/17 20:48 Dose: 10 mg Diphenhydramine HCl (Benadryl) 50 mg PO QID PRN PRN Reason: Itching Stop: 03/15/17 10:12 Last Admin: 01/24/17 14:41 Dose: 50 mg Divalproex Sodium (Depakote Dr) 500 mg PO TID SERA PRN Reason: Protocol Stop: 03/24/17 13:59 Last Admin: 01/25/17 08:48 Dose: 500 mg Docusate Sodium (Colace) 200 mg PO DAILY [facility]A Stop: 03/15/17 08:59 Last Admin: 01/25/17 08:50 Dose: Not Given Famotidine (Pepcid) 20 mg PO HS SERA Stop: 03/14/17 20:59 Last Admin: 01/24/17 20:49 Dose: 20 mg Furosemide (Lasix) 20 mg PO DAILY SERA Stop: 03/15/17 08:59 Last Admin: 01/25/17 08:49 Dose: 20 mg Haloperidol (Haldol) 5 mg PO Q6HR PRN; Protocol PRN Reason: Agitation Stop: 03/15/17 10:09 Last Admin: 01/24/17 14:41 Dose: 5 mg [place] Carbonate (Eskalith) 600 mg PO BID SERA Stop: 03/22/17 16:59 Last Admin: 01/25/17 08:48 Dose: 600 mg Lorazepam (Ativan) 1 mg PO Q6H PRN; Protocol PRN Reason: Anxiety Stop: 03/14/17 20:27 Last Admin: 01/25/17 08:49 Dose: 1 mg Magnesium Hydroxide (Milk Of Magnesia) 30 ml PO HS PRN PRN Reason: Constipation Stop: 03/14/17 20:26 Potassium Chloride (Potassium Chloride Elixir) 8 meq PO BID SERA Stop: 03/15/17 08:59 Last Admin: 01/25/17 08:49 Dose: 8 meq Quetiapine Fumarate (Seroquel) 200 mg PO BID SERA PRN Reason: Protocol Stop: 03/24/17 16:59 Last Admin: 01/25/17 08:49 Dose: 200 mg Trazodone HCl (Desyrel) [address] [facility] Stop: 03/14/17 20:59 Last Admin: 01/24/17 20:48 Dose: 100 mg
[2017-01-25] MEDS: Atorvastatin Calcium 10 MG TAB PO SCH (20:17)
[2017-01-26] MEDS: Potassium Chloride Elixir 20 mEq /15 mL UDC PO SCH (08:13)
--- NOTE | 2017-01-26 08:59 | General Progress Note ---
Subjective - Review of Systems Service Date: 01/26/17 Subjective: Patient is Confused. Objective - Results Result Diagrams: 01/19/17 09:05 01/19/17 09:05 Recent Labs: Laboratory Last Values WBC 7.6 Th/cmm (4.8-10.8) D 01/19/17 09:05 RBC 3.96 Mil/cmm (4.30-5.70) L 01/19/17 09:05 Hgb 13.0 gm/dL (13.2-17.3) L 01/19/17 09:05 Hct 38.0 % (39.0-49.0) L D 01/19/17 09:05 MCV 96.1 fl (80-99) 01/19/17 09:05 MCH 32.8 pg (26.0-30.0) H 01/19/17 09:05 MCHC Differential 34.1 pg (28.0-36.0) 01/19/17 09:05 RDW 12.9 % (11.5-20.0) 01/19/17 09:05 Plt Count 297 Th/cmm (150-400) 01/19/17 09:05 MPV 8.1 fl 01/19/17 09:05 Neutrophils % 66.7 % (40.0-80.0) 01/19/17 09:05 Lymphocytes % 20.4 % (20.0-50.0) 01/19/17 09:05 Monocytes % 8.5 % (2.0-10.0) 01/19/17 09:05 Eosinophils % 3.8 % (0.0-5.0) 01/19/17 09:05 Basophils % 0.6 % (0.0-2.0) 01/19/17 09:05 PTT (Actin FS) 24.9 SECONDS (26.0-38.0) L 01/13/17 17:33 Sodium 132 mEq/L (136-145) L 01/19/17 09:05 Potassium 4.1 mEq/L (3.5-5.1) 01/19/17 09:05 Chloride 103 mEq/L (98-107) 01/19/17 09:05 Carbon Dioxide 28.1 mEq/L (21.0-31.0) 01/19/17 09:05 Anion Gap 5.0 (7.0-16.0) L 01/19/17 09:05 BUN 27 mg/dL (7-25) H 01/19/17 09:05 Creatinine 1.3 mg/dL (0.7-1.3) 01/19/17 09:05 Est GFR ( Amer) > 60.0 ml/min (>90) 01/19/17 09:05 Est GFR (Non-Af Amer) 59.3 ml/min 01/19/17 09:05 BUN/Creatinine Ratio 20.8 01/19/17 09:05 Glucose 163 mg/dL (70-105) H 01/19/17 09:05 Calcium 9.2 mg/dL (8.6-10.3) 01/19/17 09:05 Total Bilirubin 0.2 mg/dL (0.3-1.0) L 01/19/17 09:05 AST 22 U/L (13-39) 01/19/17 09:05 ALT 15 U/L (7-52) 01/19/17 09:05 Alkaline Phosphatase 63 U/L (34-104) 01/19/17 09:05 Troponin I 0.02 ng/mL (0.01-0.05) 01/13/17 17:33 Total Protein 5.2 gm/dL (6.0-8.3) L 01/19/17 09:05 Albumin 2.7 gm/dL (4.2-5.5) L 01/19/17 09:05 Globulin 2.5 gm/dL 01/19/17 09:05 Albumin/Globulin Ratio 1.1 (1.0-1.8) 01/19/17 09:05 Triglycerides 102 mg/dL (<150) 01/13/17 17:33 Cholesterol 217 mg/dL (<200) H 01/13/17 17:33 LDL Cholesterol Direct 102 mg/dL (75-193) 01/13/17 17:33 HDL Cholesterol 87 mg/dL (23-92) 01/13/17 17:33 TSH 3.11 uIU/ml (0.34-5.60) 01/13/17 17:33 Urine Source CLEAN C 01/13/17 19:30 Urine Color PALE YELLOW 01/13/17 19:30 Urine Clarity CLEAR (CLEAR) 01/13/17 19:30 Urine pH 7.5 01/13/17 19:30 Ur Specific [place] 1.020 (1.005-1.030) 01/13/17 19:30 Urine Protein >300 mg/dL (NEGATIVE) H 01/13/17 19:30 Urine Glucose (UA) NEGATIVE mg/dL (NEGATIVE) 01/13/17 19:30 Urine Ketones NEGATIVE mg/dL (NEGATIVE) 01/13/17 19:30 Urine Blood TRACE (NEGATIVE) 01/13/17 19:30 Urine Nitrate NEGATIVE (NEGATIVE) 01/13/17 19:30 Urine Bilirubin NEGATIVE (NEGATIVE) 01/13/17 19:30 Urine Urobilinogen 0.2 E.U./dL (0.2 - 1.0) 01/13/17 19:30 Ur Leukocyte Esterase NEGATIVE (NEGATIVE) 01/13/17 19:30 Urine RBC 0-2 /hpf (0-5) H 01/13/17 19:30 Urine WBC NONE SEEN /hpf (0-5) 01/13/17 19:30 Ur Epithelial Cells NONE SEEN /lpf (FEW) 01/13/17 19:30 Urine Bacteria NONE SEEN /hpf (NONE SEEN) 01/13/17 19:30 Valproic Acid 38.8 ug/mL (50.0-100.0) L 01/13/17 17:52 [place] 0.30 MEQ/L (0.50-1.00) 01/19/17 09:05 RPR NONREACTIVE (NONREACTIVE) 01/13/17 17:33 - Physical Exam Vitals and I&O: Vital Signs Temp 97.1 F 01/26/17 06:21 Pulse 75 01/26/17 06:21 Resp 20 01/26/17 06:21 BP 108/73 01/26/17 08:15 Pulse Ox 99 01/26/17 06:21 Intake & Output 01/25/17 01/26/17 01/26/17 18:59 06:59 18:59 Intake Total 1320 Balance 1320 Intake: Oral 1320 Other: # Voids 3 # Bowel Movements 1 Stool Characteristics Formed Active Medications: Current Medications Acetaminophen (Tylenol) 650 mg PO Q6H PRN PRN Reason: Mild Pain/Headache/T above 101 Stop: 03/14/17 20:26 Last Admin: 01/17/17 20:40 Dose: 650 mg Al Hydrox/Mg Hydrox/Simethicone (Maalox) 30 ml PO Q6H PRN PRN Reason: Dyspepsia Stop: 03/14/17 20:26 Aspirin (Ecotrin) 81 mg PO DAILY [facility] Stop: 03/15/17 08:59 Last Admin: 01/26/17 08:14 Dose: 81 mg Atorvastatin Calcium (Lipitor) 10 mg PO HS [facility] PRN Reason: Protocol Stop: 03/14/17 20:59 Last Admin: 01/25/17 20:17 Dose: 10 mg Diphenhydramine HCl (Benadryl) 50 mg PO QID PRN PRN Reason: Itching Stop: 03/15/17 10:12 Last Admin: 01/24/17 14:41 Dose: 50 mg Divalproex Sodium (Depakote Dr) 500 mg PO TID [facility] PRN Reason: Protocol Stop: 03/24/17 13:59 Last Admin: 01/26/17 08:14 Dose: 500 mg Docusate Sodium (Colace) 200 mg PO DAILY [facility] Stop: 03/15/17 08:59 Last Admin: 01/26/17 08:25 Dose: 200 mg Famotidine (Pepcid) 20 mg PO HS [facility] Stop: 03/14/17 20:59 Last Admin: 01/25/17 20:17 Dose: 20 mg Furosemide (Lasix) 20 mg PO DAILY [facility] Stop: 03/15/17 08:59 Last Admin: 01/26/17 08:15 Dose: 20 mg Haloperidol (Haldol) 5 mg PO Q6HR PRN; Protocol PRN Reason: Agitation Stop: 03/15/17 10:09 Last Admin: 01/25/17 15:08 Dose: 5 mg [place] Carbonate (Eskalith) 600 mg PO BID [facility] Stop: 03/22/17 16:59 Last Admin: 01/26/17 08:14 Dose: 600 mg Lorazepam (Ativan) 1 mg PO Q6H PRN; Protocol PRN Reason: Anxiety Stop: 03/14/17 20:27 Last Admin: 01/25/17 08:49 Dose: 1 mg Magnesium Hydroxide (Milk Of Magnesia) 30 ml PO HS PRN PRN Reason: Constipation Stop: 03/14/17 20:26 Potassium Chloride (Potassium Chloride Elixir) 8 meq PO BID [facility] Stop: 03/15/17 08:59 Last Admin: 01/26/17 08:13 Dose: 8 meq Quetiapine Fumarate (Seroquel) 200 mg PO BID [facility] PRN Reason: Protocol Stop: 03/24/17 16:59 Last Admin: 01/26/17 08:14 Dose: 200 mg Trazodone HCl (Desyrel) 100 mg PO HS [facility] Stop: 03/14/17 20:59 Last Admin: 01/25/17 20:17 Dose: 100 mg General: Alert, Other (confused) HEENT: Atraumatic Neck: Supple Cardiovascular: Regular rate Lungs: Clear to auscultation Abdomen: Bowel sounds, Soft Extremities: Other (No edema) Neurological: Other (Non ambulatory) Skin: Other (Warm and dry) Psych/Mental Status: Other (Confused) Assessment/Plan - Assessment Assessment: Patient is awake, confused. yesterday labs were done and Creatinine is normal, Na a little low. Dx: Psychosis, schizophrenia, HTN, Bipolar. - Plan Plan: Patient follow by psychiatry. he is taking his meds. Will continue to monitor. Nutritional Asmnt/Malnutr-PDOC - Dietary Evaluation Malnutrition Findings (Please click <Entered> for more info): Nutritional Asmnt/Malnutrition Start: 01/19/17 12: 41 Text: Status: Complete Freq: Document 01/19/17 12:41 [email or web address] (Rec: 01/19/17 13:03 [email or web address] [id number]) Nutritional Asmnt/Malnutrition Patient General Information Nutritional Screening Diagnosis Diagnosis Schizoaffective disorder Pertinent Medical Hx/Surgical Hx COPD, seizure disorder, psychosis, HTN, bipolar, schizophrenia Subjective Information 61 year old male from SNF. Pt was very agitated and verbally aggressive during visit, refused to speak to RD. Observed pt in wheelchair, unable to complete physical assessment. Spoke to HYDROELECTRIC SYSTEMS TECHNICIAN, HYDROELECTRIC SYSTEMS TECHNICIAN stated pt with good appetite, no nutritional concerns. Avg PO intake 84% of meals past 5 days, meeting nutritional needs. 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 Problem Problem No nutritional problem at this time. Intervention/Recommendation Comments 1. Continue with current diet order. Avg PO intake is adequate. Expected Outcomes/Goals Expected Outcomes/Goals 1. PO intake continue to meet at least 75% of estimated nutritional needs.
--- NOTE | 2017-01-26 09:41 | Geri Psych Progress Note ---
[facility] Psych Progress Note - Intro Date of Progress Note: 01/26/17 - Assessment Assessment: Stabilizing. mood swings are getting under control. - Vitals, I&O Vitals: Vital Signs - 24 hr 01/25/17 01/25/17 01/25/17 14:00 15:40 20:00 Temp 97.8 F 97.3 F HR 75 81 HR [Radial] 75 RR 20 20 20 BP 127/70 121/66 O2 Sat % 98 98 01/26/17 01/26/17 06:21 08:15 Temp 97.1 F HR 75 HR [Radial] RR 20 BP 109/70 108/73 O2 Sat % 99 I&O: Intake & Output 01/24/17 01/25/17 01/26/17 01/27/17 06:59 06:59 06:59 06:59 Intake Total 1240 1920 1320 Balance 1240 1920 1320 - Objective Psych Speech: Report: Normal in Rate and amount Psych Affect: Report: Approp. content of speech Psych Thought Process: Report: Flight of Ideas Psych Cognition: Report: Memory generally intact Psych Insight: Report: Fair Psych Judgement: Report: Fair - Plan Plan: To discharge patient today. - Review of Relevant Data Review of Relevant Data: I have reviewed the following items and time danica (where applicable) has been applied. Psych Data Reviewed: Meds - Diagnosis Diagnosis: Schizo affective disorder. - Medications Current Medications: Current Medications Acetaminophen (Tylenol) 650 mg PO Q6H PRN PRN Reason: Mild Pain/Headache/T above 101 Stop: 03/14/17 20:26 Last Admin: 01/17/17 20:40 Dose: 650 mg Al Hydrox/Mg Hydrox/Simethicone (Maalox) 30 ml PO Q6H PRN PRN Reason: Dyspepsia Stop: 03/14/17 20:26 Aspirin (Ecotrin) 81 mg PO DAILY [facility] Stop: 03/15/17 08:59 Last Admin: 01/26/17 08:14 Dose: 81 mg Atorvastatin Calcium (Lipitor) 10 mg PO HS [facility] PRN Reason: Protocol Stop: 03/14/17 20:59 Last Admin: 01/25/17 20:17 Dose: 10 mg Diphenhydramine HCl (Benadryl) 50 mg PO QID PRN PRN Reason: Itching Stop: 03/15/17 10:12 Last Admin: 01/24/17 14:41 Dose: 50 mg Divalproex Sodium (Depakote Dr) 500 mg PO TID [facility] PRN Reason: Protocol Stop: 03/24/17 13:59 Last Admin: 01/26/17 08:14 Dose: 500 mg Docusate Sodium (Colace) 200 mg PO DAILY [facility] Stop: 03/15/17 08:59 Last Admin: 01/26/17 08:25 Dose: 200 mg Famotidine (Pepcid) 20 mg PO HS [facility] Stop: 03/14/17 20:59 Last Admin: 01/25/17 20:17 Dose: 20 mg Furosemide (Lasix) 20 mg PO DAILY [facility] Stop: 03/15/17 08:59 Last Admin: 01/26/17 08:15 Dose: 20 mg Haloperidol (Haldol) 5 mg PO Q6HR PRN; Protocol PRN Reason: Agitation Stop: 03/15/17 10:09 Last Admin: 01/25/17 15:08 Dose: 5 mg [place] Carbonate (Eskalith) 600 mg PO BID [facility] Stop: 03/22/17 16:59 Last Admin: 01/26/17 08:14 Dose: 600 mg Lorazepam (Ativan) 1 mg PO Q6H PRN; Protocol PRN Reason: Anxiety Stop: 03/14/17 20:27 Last Admin: 01/25/17 08:49 Dose: 1 mg Magnesium Hydroxide (Milk Of Magnesia) 30 ml PO HS PRN PRN Reason: Constipation Stop: 03/14/17 20:26 Potassium Chloride (Potassium Chloride Elixir) 8 meq PO BID [facility] Stop: 03/15/17 08:59 Last Admin: 01/26/17 08:13 Dose: 8 meq Quetiapine Fumarate (Seroquel) 200 mg PO BID [facility] PRN Reason: Protocol Stop: 03/24/17 16:59 Last Admin: 01/26/17 08:14 Dose: 200 mg Trazodone HCl (Desyrel) 100 mg PO HS [facility] Stop: 03/14/17 20:59 Last Admin: 01/25/17 20:17 Dose: 100 mg
--- NOTE | 2017-01-26 09:46 | Geri Psych Progress Note ---
[facility] Psych Progress Note - Intro Date of Progress Note: 01/26/17 - Assessment Assessment: Patient is still having mood swings but less than before. - Vitals, I&O Vitals: Vital Signs - 24 hr 01/25/17 01/25/17 01/25/17 14:00 15:40 20:00 Temp 97.8 F 97.3 F HR 75 81 HR [Radial] 75 RR 20 20 20 BP 127/70 121/66 O2 Sat % 98 98 01/26/17 01/26/17 06:21 08:15 Temp 97.1 F HR 75 HR [Radial] RR 20 BP 109/70 108/73 O2 Sat % 99 I&O: Intake & Output 01/24/17 01/25/17 01/26/17 01/27/17 06:59 06:59 06:59 06:59 Intake Total 1240 1920 1320 Balance 1240 1920 1320 - ROS Psychological ROS: Report: Irritability, Mood swings - Objective Psych General Appearance: Report: No acute distress Psych Behavior: Report: Alert, Cooperative Psych Speech: Report: Normal in Rate and amount Psych Mood: Report: Dysthymic Psych Affect: Report: Approp. content of speech Psych Thought Process: Report: Goal Directed Psych Cognition: Report: Grossly Intact Psych Insight: Report: Fair Psych Judgement: Report: Fair - Plan Plan: To discharge patient when placement is available. - Review of Relevant Data Review of Relevant Data: I have reviewed the following items and time danica (where applicable) has been applied. Psych Data Reviewed: Meds - Medications Current Medications: Current Medications Acetaminophen (Tylenol) 650 mg PO Q6H PRN PRN Reason: Mild Pain/Headache/T above 101 Stop: 03/14/17 20:26 Last Admin: 01/17/17 20:40 Dose: 650 mg Al Hydrox/Mg Hydrox/Simethicone (Maalox) 30 ml PO Q6H PRN PRN Reason: Dyspepsia Stop: 03/14/17 20:26 Aspirin (Ecotrin) 81 mg PO DAILY [facility] Stop: 03/15/17 08:59 Last Admin: 01/26/17 08:14 Dose: 81 mg Atorvastatin Calcium (Lipitor) 10 mg PO HS [facility] PRN Reason: Protocol Stop: 03/14/17 20:59 Last Admin: 01/25/17 20:17 Dose: 10 mg Diphenhydramine HCl (Benadryl) 50 mg PO QID PRN PRN Reason: Itching Stop: 03/15/17 10:12 Last Admin: 01/24/17 14:41 Dose: 50 mg Divalproex Sodium (Depakote Dr) 500 mg PO TID [facility] PRN Reason: Protocol Stop: 03/24/17 13:59 Last Admin: 01/26/17 08:14 Dose: 500 mg Docusate Sodium (Colace) 200 mg PO DAILY [facility] Stop: 03/15/17 08:59 Last Admin: 01/26/17 08:25 Dose: 200 mg Famotidine (Pepcid) 20 mg PO HS [facility] Stop: 03/14/17 20:59 Last Admin: 01/25/17 20:17 Dose: 20 mg Furosemide (Lasix) 20 mg PO DAILY [facility] Stop: 03/15/17 08:59 Last Admin: 01/26/17 08:15 Dose: 20 mg Haloperidol (Haldol) 5 mg PO Q6HR PRN; Protocol PRN Reason: Agitation Stop: 03/15/17 10:09 Last Admin: 01/25/17 15:08 Dose: 5 mg [place] Carbonate (Eskalith) 600 mg PO BID [facility] Stop: 03/22/17 16:59 Last Admin: 01/26/17 08:14 Dose: 600 mg Lorazepam (Ativan) 1 mg PO Q6H PRN; Protocol PRN Reason: Anxiety Stop: 03/14/17 20:27 Last Admin: 01/25/17 08:49 Dose: 1 mg Magnesium Hydroxide (Milk Of Magnesia) 30 ml PO HS PRN PRN Reason: Constipation Stop: 03/14/17 20:26 Potassium Chloride (Potassium Chloride Elixir) 8 meq PO BID [facility] Stop: 03/15/17 08:59 Last Admin: 01/26/17 08:13 Dose: 8 meq Quetiapine Fumarate (Seroquel) 200 mg PO BID [facility] PRN Reason: Protocol Stop: 03/24/17 16:59 Last Admin: 01/26/17 08:14 Dose: 200 mg Trazodone HCl (Desyrel) 100 mg PO HS [facility] Stop: 03/14/17 20:59 Last Admin: 01/25/17 20:17 Dose: 100 mg
== END 2017-01-26 14:20 | DRG 885 ==
LOC: ER 17:10 → GERO 19:00
PROVIDERS: ADMIT Psychiatry & Neurology Psychiatry; ATTEND Psychiatry & Neurology Psychiatry
DX: F25.1 Schizoaffective disorder, depressive type (principal); F03.91 Unspecified dementia, unspecified severity, with behavioral disturbance; L03.116 Cellulitis of left lower limb; L03.115 Cellulitis of right lower limb; G40.909 Epilepsy, unspecified, not intractable, without status epilepticus; I10 Essential (primary) hypertension; F29 Unspecified psychosis not due to a substance or known physiological condition; J44.9 Chronic obstructive pulmonary disease, unspecified; R60.9 Edema, unspecified; F17.200 Nicotine dependence, unspecified, uncomplicated; R45.87 Impulsiveness; Z91.19 Patient's noncompliance with other medical treatment and regimen
CPT/HCPCS: 36415-UA; 71010-TC; 80053-TC; 80061-TC; 80164-TC; 80178-TC; 81001-TC; 84443-TC; 84484-TC; 85025-TC; 85730-TC; 86592-TC; 93005; 96374; A4216; J1200; J1630; J2060; J3230; Z7610